=== PATIENT | male | born 1965 | race African-American/Black ===

== ENCOUNTER → 2018-06-24 | Outpatient (CLI) | payer OTHER ==
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
== END ==
LOC: RADXRMAIN 12:31
PROVIDERS: ATTEND Family Medicine
DX: M25.532 Pain in left wrist (principal)

== ENCOUNTER 2018-12-17 20:14 | Emergency (ER) | payer OTHER ==
[2018-12-17 20:26] VITALS: TEMP 99
[2018-12-17] MEDS ORDERED: MORPHINE SULFATE 2 MG/ML SYRINGE IVP STA (20:34)
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
[2018-12-17 22:05] VITALS: BP 125/98; PULSE 81
[2018-12-17 22:06] VITALS: RESP 18
== END 2018-12-17 22:19 | disposition home or self-care (01) ==
LOC: EC 20:14
DX: S16.1XXA Strain of muscle, fascia and tendon at neck level, initial encounter (principal); I25.10 Atherosclerotic heart disease of native coronary artery without angina pectoris; I10 Essential (primary) hypertension; M54.6 Pain in thoracic spine; R68.84 Jaw pain; F17.200 Nicotine dependence, unspecified, uncomplicated; V17.4XXA Pedal cycle driver injured in collision with fixed or stationary object in traffic accident, initial encounter; Y93.89 Activity, other specified; Y92.410 Unspecified street and highway as the place of occurrence of the external cause
CPT/HCPCS: 72072; 71046; 72125; 70486; 70450; 99284; 96374; J2270

== ENCOUNTER 2019-05-13 00:02 | Emergency (ER) | payer OTHER ==
[2019-05-13 00:09] VITALS: BP 112/77; PULSE 91; RESP 18; TEMP 98.1
--- NOTE | 2019-05-13 01:03 | ED ---
ENT HPI - General Chief complaint: ENT Stated complaint: hearing problem Source: patient, family, RN notes reviewed Mode of arrival: ambulatory Limitations: no limitations - History of Present Illness Initial comments: 53-year-old male present emergency Department with chief complaint of radiation. Patient states cannot get up last 3 days. He said physician in the past. No f dolores chills no significant pain denies any nasal congestion cough headache or dizziness. - Related Data Allergies Allergy/AdvReac Type Severity Reaction Status Date / Time No Known Allergies Allergy Verified 02/12/16 22:50 Review of Systems ROS Statement: Those systems with pertinent positive or pertinent negative responses have been documented in the HPI. ROS Other: All systems not noted in ROS Statement are negative. Past Medical History Past Medical History: Hypertension Additional Past Medical History / Comment(s): depression History of Any Multi-Drug Resistant Organisms: None Reported Past Surgical History: Orthopedic Surgery Additional Past Surgical History / Comment(s): hand Past Psychological History: Anxiety, Depression Smoking Status: Current every day smoker Past Alcohol Use History: Rare Past Drug Use History: None Reported General Exam General appearance: alert, in no apparent distress Head exam: Present: atraumatic, normocephalic, normal inspection Eye exam: Present: normal appearance, PERRL, EOMI. Absent: scleral icterus, conjunctival injection, periorbital swelling ENT exam: Present: normal oropharynx, mucous membranes moist, TM's normal bilaterally. Absent: normal exam, normal external ear exam (Cerumen impaction right) Neck exam: Present: normal inspection, full ROM. Absent: tenderness, meningismus, lymphadenopathy Respiratory exam: Present: normal lung sounds bilaterally. Absent: respiratory distress, wheezes, rales, rhonchi, stridor Cardiovascular Exam: Present: regular rate, normal rhythm, normal heart sounds. Absent: systolic murmur, diastolic murmur, rubs, gallop, clicks Course Vital Signs 05/13/19 00:05 Temperature 98.1 F Pulse Rate 91 Respiratory 18 Rate Blood Pressure 112/77 O2 Sat by Pulse 100 Oximetry Procedures - Ear Wax Removal Right Ear Cerumenolytic Used: 5-10% Sodium Bicarb solution Ear Canal Irrigated by: MD MARCK Ear Canal Irrigated With: warm saline using syringe/angiocath Results: Re-examined: some cerumen remains Ear Canal: atraumatic Patient Tolerated Procedure: well, no complications Complications: no problems Disposition Clinical Impression: Impacted cerumen of right ear Disposition: HOME SELF-CARE Condition: Stable Instructions (If sedation given, give patient instructions): Cerumen Impaction (ED) Additional Instructions: Please return to the Emergency Department if symptoms worsen or any other concerns. Is patient prescribed a controlled substance at d/c from ED?: No Referrals: None,Stated [Primary Care Provider] - 1-2 days
== END 2019-05-13 01:23 | disposition home or self-care (01) ==
LOC: EC 00:02
DX: H61.21 Impacted cerumen, right ear (principal); F17.200 Nicotine dependence, unspecified, uncomplicated
CPT/HCPCS: 69209; 99283

== ENCOUNTER → 2019-06-02 | Outpatient (CLI) | payer OTHER ==
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
== END | disposition home or self-care (01) ==
LOC: RADXRMAIN 08:37
PROVIDERS: ATTEND Internal Medicine
DX: M19.032 Primary osteoarthritis, left wrist (principal); M19.031 Primary osteoarthritis, right wrist; M19.042 Primary osteoarthritis, left hand; M19.041 Primary osteoarthritis, right hand

== ENCOUNTER 2019-07-24 22:44 | Emergency (ER) | payer OTHER ==
[2019-07-24 23:11] VITALS: RESP 18
--- NOTE | 2019-07-24 23:36 | XR ---
EXAMINATION TYPE: XR chest 2V DATE OF EXAM: 07/24/2019 COMPARISON: 12/17/2018 HISTORY: Neck pain back pain TECHNIQUE: FINDINGS: Heart and mediastinum are normal. Lungs are clear. Diaphragm is normal. Bony thorax appears normal. IMPRESSION: Normal chest. No change.
[2019-07-24 23:52] VITALS: TEMP 98.8
[2019-07-25] MEDS ORDERED: SODIUM CHLORIDE 0.9% 1,000 ML IV ONE (00:03)
--- NOTE | 2019-07-25 00:25 | ED ---
URI HPI - General Chief Complaint: Upper Respiratory Infection Stated Complaint: SOB, cough Time Seen by Provider: 07/24/19 22:57 Source: patient Mode of arrival: ambulatory Limitations: no limitations - History of Present Illness Initial Comments: Domingo is a 53-year-old male who presents the ER today for evaluation of approximately one week of fever, chills, body aches and nonproductive cough. Patient reports he hasn't been eating or drinking much for the past few days and just today began drinking again. Patient reports this is persistent for the lining decided to come the ER for evaluation. - Related Data Allergies Allergy/AdvReac Type Severity Reaction Status Date / Time No Known Allergies Allergy Verified 07/24/19 22:52 Review of Systems ROS Statement: Those systems with pertinent positive or pertinent negative responses have been documented in the HPI. ROS Other: All systems not noted in ROS Statement are negative. Past Medical History Past Medical History: Hypertension Additional Past Medical History / Comment(s): depression, History of Any Multi-Drug Resistant Organisms: None Reported Past Surgical History: Orthopedic Surgery Additional Past Surgical History / Comment(s): hand, Past Psychological History: Anxiety, Depression Smoking Status: Current every day smoker Past Alcohol Use History: Rare Past Drug Use History: Marijuana General Exam - General Exam Comments Initial Comments: Physical Exam GENERAL: Patient is well-developed and well-nourished. Patient is nontoxic and well-hydrated and is in no distress. HENT: Normocephalic, Atraumatic. EYES: PERRL, EOMI PULMONARY: Unlabored respirations. CARDIOVASCULAR: RRR Tachycardic, regular ABDOMEN: Non-distended SKIN: No rashes or bruising : Deferred NEUROLOGIC: Alert and oriented Normal speech Normal gait MUSCULOSKELETAL: Moving all extremities with no apparent injury PSYCHIATRIC: No SI/HI Limitations: no limitations Course Vital Signs 07/24/19 07/24/19 07/24/19 22:49 23:09 23:50 Temperature 98.6 F 98.8 F Pulse Rate 117 H 99 Respiratory 22 18 18 Rate Blood Pressure 143/99 104/72 O2 Sat by Pulse 98 95 Oximetry Medical Decision Making - Medical Decision Making The patient was seen and evaluated history is obtained from patient history and physical exam are concerning for a flulike illness, patient also appears mildly dehydrated patient was offered flu which was positive for influenza A, IV access was can use given a 1 L fluid bolus. Patient's tachycardia resolved. Patient hemodynamically stable, outside the window for Tamiflu will be discharged home with supportive care. - Lab Data Lab Results 07/24/19 Range/Units 23:05 Influenza Type A RNA Detected H (Not Detectd) Influenza Type B (PCR) Not Detected (Not Detectd) Disposition Clinical Impression: Influenza Disposition: HOME SELF-CARE Condition: Stable Instructions (If sedation given, give patient instructions): Influenza (DC) Is patient prescribed a controlled substance at d/c from ED?: No Referrals: Wally Myers MD [Primary Care Provider] - 1-2 days
[2019-07-25 01:07] VITALS: BP 122/84; PULSE 98
== END 2019-07-25 01:07 | disposition home or self-care (01) ==
LOC: EC 22:44
DX: J11.1 Influenza due to unidentified influenza virus with other respiratory manifestations (principal); R00.0 Tachycardia, unspecified; I10 Essential (primary) hypertension; F17.200 Nicotine dependence, unspecified, uncomplicated
CPT/HCPCS: 71046; 87502; 96360; 99285

== ENCOUNTER 2020-10-13 10:34 | Emergency (ER) | payer OTHER ==
[2020-10-13 11:14] VITALS: RESP 18; TEMP 97.4
[2020-10-13] MEDS ORDERED: NALOXONE 0.4 MG/ML 1 ML VIAL IVP STA (11:51)
[2020-10-13] MEDS ORDERED: KETOROLAC 15 MG/ML 1 ML VIAL IVP STA (11:51)
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
--- NOTE | 2020-10-13 12:46 | XR ---
EXAMINATION TYPE: XR hand complete LT DATE OF EXAM: 10/13/2020 COMPARISON: 06/02/2019 HISTORY: Pain TECHNIQUE: Three views are submitted. FINDINGS: Multiple metallic foreign body seen scattered throughout the soft tissues of the wrist and hand. Post surgical change involving this second digit. Chronic deformity involving the third digit. No acute fr acture or dislocation. IMPRESSION: 1. No acute fracture. See above.
--- NOTE | 2020-10-13 12:48 | XR ---
EXAMINATION TYPE: XR wrist complete LT DATE OF EXAM: 10/13/2020 COMPARISON: 06/02/2019 HISTORY: Pain TECHNIQUE: Four views submitted. FINDINGS: Postsurgical change or congenital deformity of the second digit with chronic deformity of the third d igit. There is extensive soft tissue metallic foreign body noted. No acute osseous abnormality. IMPRESSION: 1. No definite acute fracture or dislocation if symptoms persist, follow-up study in 7 to 10 days wo uld be suggested
[2020-10-13 14:40] VITALS: BP 118/89; PULSE 82
== END 2020-10-13 14:45 | disposition home or self-care (01) ==
LOC: EC 10:34
DX: S60.222A Contusion of left hand, initial encounter (principal); I10 Essential (primary) hypertension; F32.9 Major depressive disorder, single episode, unspecified; F17.200 Nicotine dependence, unspecified, uncomplicated; F12.90 Cannabis use, unspecified, uncomplicated; X50.0XXA Overexertion from strenuous movement or load, initial encounter; Y93.89 Activity, other specified
CPT/HCPCS: 93005; 73110; 73130; 99283; 96374; J1885

== ENCOUNTER 2021-05-16 17:41 | Observation (INO) | payer OTHER ==
[2021-05-16] MEDS ORDERED: SODIUM CHLORIDE 0.9% 1,000 ML IV STA (18:17)
--- NOTE | 2021-05-16 18:19 | ED ---
General Adult HPI - General Chief complaint: Chest Pain Stated complaint: IHS-Dizziness,chest pain Time Seen by Provider: 05/16/21 18:07 Source: patient Mode of arrival: ambulatory Limitations: no limitations - History of Present Illness Initial comments: Dictation was produced using [employer] dictation software. please excuse any grammatical, word or spelling errors. Chief Complaint: 55-year-old male presents with chest pressure and syncopal episode History of Present Illness: 85-year-old male who presents to the emergency department for chest pressure and syncopal episode. This morning patient gave plasma. Patient has been given plasma for several years. He does it on a weekly basis. Patient states he plasma this morning went to work. Patient states he has had issues with headedness after plasma donation on multiple occ asions. Patient states that today he felt lightheaded after giving plasma at work. Patient states he went to put his head down. I'll send he murmurs past and output cannot not know where he is. Patient states he suffered a small cut to his inside lower lip. Patient states he has some mild chest pressure. He states that the pressures to his substernal left anterior chest. States that she feels some pain that feels worse when he tries to take a deep breath. Pain is nonradiating. He states that he feels some fuzziness in his bilateral upper extremities. The ROS documented in this emergency department record has been reviewed and confirmed by me. Those systems with pertinent positive or negative responses have been documented in the HPI. All other systems are other negative and/or noncontributory. PHYSICAL EXAM: General Impression: Alert and oriented x3, not in acute distress HEENT: Normocephalic atraumatic, extra-ocular movements intact, pupils equal and reactive to light bilaterally, mucous membranes moist. Cardiovascular: Heart regular rate and rhythm Chest: Able to complete full sentences, no retractions, no tachypnea Abdomen: abdomen soft, non-tender, non-distended, no organomegaly Musculoskeletal: Pulses present and equal in all extremities, no peripheral edema Motor: no focal deficits noted Neurological: CN II-XII grossly intact, no focal motor or sensory deficits noted Skin: Intact with no visualized rashes Psych: Normal affect and mood ED course: 55-year-old male presents emergency department for chest pain and syncopal episode after plasma donation today vital signs upon arrival shows blood pressure 97/75, rest of vital signs within acceptable limits. EKG interpretation: Ventricular rate 102, sinus tachycardia,. Interval 160, QRS 60, QTc 450. No SC prolongation, no QTC prolongation, no ST or T-wave changes noted. EKG compared to and third, 2020 showing no changes. Overall, this EKG is unremarkable CT angios the chest shows no evidence of pulmonary embolism. No evidence of acute lung disease. Chest x-ray is nonacute as well. Laboratory evaluation shows leukopenia 2.6, microcytic red blood cells. Coag panel is unremarkable. Metabolic panel is normal. Troponin is negative. Repeat vital signs are sustained. Patient reevaluated at the bedside. He has never had a heart attack before. He states that he gets episodes of this chest pressure. Click or presentation concerning for atypical chest pain typical features. Disposition options were discussed. Agreeable for inpatient admission for cardiac monitoring, serial troponin and cardiology consultation. Patient given an aspirin. Reevaluated the bedside at 801 and in stable medical condition. - Related Data Home Medications Medication Instructions Recorded Confirmed HYDROcodone/APAP 5-325MG [[place] 0.5 - 1 tab PO DAILY PRN 10/13/20 10/13/20 5-325] Allergies Allergy/AdvReac Type Severity Reaction Status Date / Time No Known Allergies Allergy Verified 05/16/21 17:52 Review of Systems ROS Statement: Those systems with pertinent positive or pertinent negative responses have been documented in the HPI. ROS Other: All systems not noted in ROS Statement are negative. Past Medical History Past Medical History: Hypertension Additional Past Medical History / Comment(s): depression, History of Any Multi-Drug Resistant Organisms: None Reported Past Surgical History: Orthopedic Surgery Additional Past Surgical History / Comment(s): hand, Past Psychological History: Anxiety, Depression Smoking Status: Current every day smoker Past Alcohol Use History: Rare Past Drug Use History: Marijuana General Exam Limitations: no limitations Course Vital Signs 05/16/21 05/16/21 05/16/21 17:50 18:46 19:43 Temperature 97.5 F L Pulse Rate 98 96 96 Respiratory 18 18 18 Rate Blood Pressure 97/75 97/67 113/81 O2 Sat by Pulse 97 98 97 Oximetry Medical Decision Making - Lab Data Result diagrams: 05/16/21 18:46 05/16/21 18:46 Lab Results 05/16/21 05/16/2105/16/22 Range/Units 18:46 18:46 18:46 WBC 2.6 L (3.8-10.6) k/uL RBC 5.88 (4.30-5.90) m/uL Hgb 13.7 (13.0-17.5) gm/dL Hct 45.2 (39.0-53.0) % MCV 76.8 L (80.0-100.0) fL MCH 23.2 L (25.0-35.0) pg MCHC 30.2 L (31.0-37.0) g/dL RDW 17.9 H (11.5-15.5) % Plt Count 204 (150-450) k/uL MPV 8.5 Hypochromasia Marked Anisocytosis Slight Microcytosis Slight PT 9.7 (9.0-12.0) sec INR 0.9 (<1.2) APTT 23.6 (22.0-30.0) sec Sodium 133 L (137-145) mmol/L Potassium 4.3 (3.5-5.1) mmol/L Chloride 103 (98-107) mmol/L Carbon Dioxide 21 L (22-30) mmol/L Anion Gap 9 mmol/L BUN 11 (9-20) mg/dL Creatinine 0.82 (0.66-1.25) mg/dL Est GFR (CKD-EPI)AfAm >90 (>60 ml/min/1.73 sqM) Est GFR (CKD-EPI)NonAf >90 (>60 ml/min/1.73 sqM) Glucose 91 (74-99) mg/dL Calcium 8.9 (8.4-10.2) mg/dL Magnesium 2.0 (1.6-2.3) mg/dL Total Bilirubin 0.5 (0.2-1.3) mg/dL AST 61 H (17-59) U/L ALT 36 (4-49) U/L Alkaline Phosphatase 60 (38-126) U/L Troponin I (0.000-0.034) ng/mL Total Protein 6.3 (6.3-8.2) g/dL Albumin 3.5 (3.5-5.0) g/dL 05/16/21 Range/Units 18:46 WBC (3.8-10.6) k/uL RBC (4.30-5.90) m/uL Hgb (13.0-17.5) gm/dL Hct (39.0-53.0) % MCV (80.0-100.0) fL MCH (25.0-35.0) pg MCHC (31.0-37.0) g/dL RDW (11.5-15.5) % Plt Count (150-450) k/uL MPV Hypochromasia Anisocytosis Microcytosis PT (9.0-12.0) sec INR (<1.2) APTT (22.0-30.0) sec Sodium (137-145) mmol/L Potassium (3.5-5.1) mmol/L Chloride (98-107) mmol/L Carbon Dioxide (22-30) mmol/L Anion Gap mmol/L BUN (9-20) mg/dL Creatinine (0.66-1.25) mg/dL Est GFR (CKD-EPI)AfAm (>60 ml/min/1.73 sqM) Est GFR (CKD-EPI)NonAf (>60 ml/min/1.73 sqM) Glucose (74-99) mg/dL Calcium (8.4-10.2) mg/dL Magnesium (1.6-2.3) mg/dL Total Bilirubin (0.2-1.3) mg/dL AST (17-59) U/L ALT (4-49) U/L Alkaline Phosphatase (38-126) U/L Troponin I <0.012 (0.000-0.034) ng/mL Total Protein (6.3-8.2) g/dL Albumin (3.5-5.0) g/dL Disposition Clinical Impression: Chest pain Disposition: ADMITTED IP TO THIS HOSP Condition: Fair Referrals: Wally Myers MD [Primary Care Provider] - 1-2 days
[2021-05-16 19:07] LABS: ALT 36 U/L (4-49); AST 61 U/L (17-59); African American GFR (CKD) >90 (>60 ml/min/1.73 sqM); Albumin 3.5 g/dL (3.5-5.0); Alkaline Phosphatase 60 U/L (38-126); Anion Gap 9 mmol/L; Blood Urea Nitrogen 11 mg/dL (9-20); Calcium 8.9 mg/dL (8.4-10.2); Carbon Dioxide 21 mmol/L (22-30); Chloride 103 mmol/L (98-107); Glucose 91 mg/dL (74-99); Non-African American GFR(CKD) >90 (>60 ml/min/1.73 sqM); Sodium 133 mmol/L (137-145); Total Bilirubin 0.5 mg/dL (0.2-1.3); Total Protein 6.3 g/dL (6.3-8.2)
[2021-05-16 19:08] LABS: Potassium 4.3 mmol/L (3.5-5.1)
[2021-05-16 19:09] LABS: Anisocytosis Slight; Basophils % (A) 0 %; Eosinophils % (A) 1 %; HCT 45.2 % (39.0-53.0); HGB 13.7 gm/dL (13.0-17.5); Hypochromasia Marked; Lymphocytes # (A) 0.6 k/uL (1.0-4.8); Lymphocytes % (A) 22 %; MCH 23.2 pg (25.0-35.0); MCHC 30.2 g/dL (31.0-37.0); MCV 76.8 fL (80.0-100.0); Mean Platelet Volume 8.5; Microcytosis Slight; Monocytes # (A) 0.3 k/uL (0-1.0); Monocytes % (A) 11 %; Neutrophils # (A) 1.6 k/uL (1.3-7.7); Neutrophils % (A) 62 %; Platelet Count 204 k/uL (150-450); RBC 5.88 m/uL (4.30-5.90); RDW 17.9 % (11.5-15.5); WBC 2.6 k/uL (3.8-10.6)
[2021-05-16 19:22] LABS: INR 0.9 (<1.2); Partial Thromboplastin Time 23.6 sec (22.0-30.0); Prothrombin Time 9.7 sec (9.0-12.0)
--- NOTE | 2021-05-16 19:37 | CT ---
EXAMINATION TYPE: CT angio chest DATE OF EXAM: 05/16/2021 COMPARISON: None HISTORY: chest pain CT DLP: 288.4 mGycm Automated exposure control for dose reduction was used. CONTRAST: Performed with IV Contrast, patient injected with 40cc mL of Isovue 370. Images obtained from the thoracic inlet through the diaphragm with IV contrast. There are Three-D pos tprocessed images. There is no mediastinal adenopathy. Thoracic aorta is intact. There is no aneurysm or dissection. The re are no hilar masses. The ascending aorta measures 3.5 cm. The lungs are clear of infiltrate. There is no pleural effusion. There are no hilar masses. There is suboptimal contrast density in the pulmonary arteries. There is no filling defect. The thoracic spine is intact. There is no compression fracture. Sternum is intact. IMPRESSION: No evidence of pulmonary embolism. No evidence of acute lung disease.
--- NOTE | 2021-05-16 19:38 | XR ---
EXAMINATION TYPE: XR chest 1V portable DATE OF EXAM: 05/16/2021 COMPARISON: 07/24/2019 HISTORY: Chest pain TECHNIQUE: Single view FINDINGS: Heart is normal. Lungs are clear of infiltrate. There is no heart failure. There are no hil ar masses. IMPRESSION: Normal chest. No change.
[2021-05-16] MEDS ORDERED: ASPIRIN 81 MG PO STA (19:58)
[2021-05-16] MEDS ORDERED: NITROGLYCERIN SL TABS 0.4 MG TAB SUBLINGUAL PRN (19:59)
[2021-05-16] MEDS ORDERED: ONDANSETRON ODT 4 MG TAB PO PRN (22:05)
[2021-05-17 03:43] VITALS: RESP 16
[2021-05-17] MEDS ORDERED: ASPIRIN 81 MG PO SCH (09:00)
[2021-05-17] MEDS ORDERED: PANTOPRAZOLE 40 MG TABLET PO SCH (09:00)
[2021-05-17] MEDS ORDERED: ZINC SULFATE 220 MG CAP PO SCH (09:00)
[2021-05-17] MEDS ORDERED: MULTIVITAMINS, THERA 1 EACH TAB PO SCH (09:00)
[2021-05-17] MEDS ORDERED: ASCORBIC ACID 500 MG TAB PO SCH (09:00)
[2021-05-17] MEDS ORDERED: FERROUS SULFATE 325 MG TAB PO SCH (09:00)
[2021-05-17] MEDS ORDERED: ASPIRIN 325 MG TAB PO SCH (09:00)
[2021-05-17] MEDS ORDERED: CHOLECALCIFEROL 25 MCG (1000 IU) TABLET PO SCH (09:00)
[2021-05-17 09:17] LABS: African American GFR (CKD) 112.6 (60.0-200.0); BUN/Creat Ratio 9.89 Ratio (12.00-20.00); Blood Urea Nitrogen 8.9 mg/dL (9.0-27.0); Calcium 8.5 mg/dL (8.7-10.3); Carbon Dioxide 24.8 mmol/L (20.0-27.5); Chloride 104 mmol/L (96-109); Chol/HDL Ratio 2.56 Ratio; Glucose 93 mg/dL (70-110); LDL Cholesterol,Calculated 53.7 mg/dL (0.0-131.0); Non-African American GFR(CKD) 97.2 (60.0-200.0); Potassium 3.9 mmol/L (3.5-5.5); Sodium 137 mmol/L (135-145)
[2021-05-17 09:26] VITALS: BP 114/77; PULSE 82; TEMP 96.1
--- NOTE | 2021-05-17 09:32 | P.CRDCN ---
History of Present Illness History of present illness: HISTORY OF PRESENTING ILLNESS This is a pleasant 55-year-old with history of tobacco use and GERD. 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 We have been asked to see in consultation for chest pain. Patient presents to the emergency department after a syncopal episode at work. 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 He states yesterday around 2pm he donated plasma, he went to work afterwards. In 1-2 hours he started to feel lightheaded, dizzy and felt he had to sit down. He states this happened 3 times. He sat down in the break room, put his head down and apparently passed out. He states he did fall to the ground, this woke up him. His girlfriend brought him to the ER for evaluation. He states he did not eat after his plasma donation and he does feel lightheaded sometimes after the donations but has not passed out before. He also has been having symptoms of night sweats, decreased appetite, feeling "run down", endorses chills. Denies fever, palpitations, or shortness of breath. He was found to be covid-19 positive. In terms of his chest pain he has been having left sided chest pain on and off for 1 year. Non-exertional, non-radiating. Denies any associated shortness of b reath, diaphoresis, or nausea or vomiting. It is reproducible, worse with palpation to his left side of his chest. He also has some left sided back pain when moving his left arm. 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 DIAGNOSTICS EKG reveals sinus tachycardia, heart rate 102, T wave inversion in lead III, no significant ST-T wave abnormalities to suggest ischemia Telemetry tracings this morning revealed sinus mechanism HR 90s Chest xray no acute cardiopulmonary process. Laboratory reviewed, Covid-19 Positive ,WBC 2.6, hemoglobin 13.7, platelets 204, troponin negative 3, sodium 133, potassium 4.3, BUN 11, serum creatinine 0.8, magnesium 2.0, triglycerides 1:15, cholesterol 126, LDL 53, HDL 49, Current home medications include PRN zofran, omeprazole, multivitamin and ferrous sulfate REVIEW OF SYSTEMS At the time of my exam: CONSTITUTIONAL: Denies fever or chills. CARDIOVASCULAR: Denies chest pain, shortness of breath, orthopnea, PND or palpitations. RESPIRATORY: Denies cough. GASTROINTESTINAL: Denies abdominal pain, diarrhea, constipation, nausea or vomiting. MUSCULOSKELETAL: Denies myalgias. NEUROLOGIC: Denies numbness, tingling, headache or weakness. ENDOCRINE: Denies fatigue, weight change, polydipsia or polyurina. GENITOURINARY: Denies burning, hematuria or urgency with micturation. HEMATOLOGIC: Denies history of anemia or bleeding. PHYSICAL EXAMINATION Vitals reviewed CONSTITUTIONAL: No apparent distress. HEENT: Head is normocephalic. No JVD. CHEST EXAMINATION: Lungs are clear to auscultation. There is chest wall tenderness is noted on palpation HEART EXAMINATION: Regular rate and rhythm. S1, S2 heard. No murmurs, gallops or rub. ABDOMEN: Soft, nontender. Positive bowel sounds. EXTREMITIES:no lower extremity edema SKIN: Aake, alert and oriented x3. ASSESSMENT Syncope, likely related to plasma donation, possible dehydration and covid-19 infection Chest pain, appears non-cardiac in nature, appears musculoskeletal etiology, rep roducible on exam Covid-19 infection Symptoms of night sweats, chills, decreased appetite and generalized fatigue PLAN An acute coronary event has been ruled out with no EKG evidence of ischemia and negative cardiac enzymes. Obtain 2D echocardiogram and doppler study to assess cardiac structure and function. From a cardiology perspective, if echocardiogram with no acute findings, ok to discharge patient and follow up in the office for further workup and evaluation. Thank you kindly for this consultation. Nurse Practitioner note has been reviewed, I agree with a documented findings and plan of care. Patient was seen and examined. Past Medical History Past Medical History: Hypertension Additional Past Medical History / Comment(s): depression, History of Any Multi-Drug Resistant Organisms: None Reported Past Surgical History: Orthopedic Surgery Additional Past Surgical History / Comment(s): hand, Past Psychological History: Anxiety, Depression Smoking Status: Current every day smoker Past Alcohol Use History: Rare Past Drug Use History: Marijuana Medications and Allergies Home Medications Medication Instructions Recorded Confirmed Type Ferrous Sulfate [Feosol] 325 mg PO DAILY 05/16/21 05/16/21 History Multivitamins, Thera [Multivitamin 1 tab PO DAILY 05/16/21 05/16/21 History (formulary)] Omeprazole 40 mg PO DAILY 05/16/21 05/16/21 History Ondansetron Odt [Zofran Odt] 4 mg PO Q12HR PRN 05/16/21 05/16/21 History Allergies Allergy/AdvReac Type Severity Reaction Status Date / Time No Known Allergies Allergy Verified 05/16/21 20:22 Physical Exam Vitals: Vital Signs Temp Pulse Resp BP Pulse Ox 05/17/21 07:06 98.5 F 91 16 110/72 98 05/17/21 03:42 93 16 118/86 94 L 05/17/21 00:09 91 18 110/72 97 05/16/21 19:43 96 18 113/81 97 05/16/21 18:46 96 18 97/67 98 05/16/21 17:50 97.5 F L 98 18 97/75 97 Intake and Output 05/16/21 05/17/21 05/17/21 22:59 06:59 14:59 Other: Weight 78.925 kg Results 05/16/21 18:46 05/17/21 05:18 Cardiac Enzymes 05/16/21 05/16/21 05/16/21 Range/Units 18:46 18:46 21:49 AST 61 H (17-59) U/L Troponin I <0.012 <0.012 (0.000-0.034) ng/mL 05/17/21 Range/Units 00:07 AST (17-59) U/L Troponin I <0.012 (0.000-0.034) ng/mL Coagulation 05/16/21 Range/Units 18:46 PT 9.7 (9.0-12.0) sec APTT 23.6 (22.0-30.0) sec CBC 05/16/21 Range/Units 18:46 WBC 2.6 L (3.8-10.6) k/uL RBC 5.88 (4.30-5.90) m/uL Hgb 13.7 (13.0-17.5) gm/dL Hct 45.2 (39.0-53.0) % Plt Count 204 (150-450) k/uL Comprehensive Metabolic Panel 05/16/21 Range/Units 18:46 Sodium 133 L (137-145) mmol/L Potassium 4.3 (3.5-5.1) mmol/L Chloride 103 (98-107) mmol/L Carbon Dioxide 21 L (22-30) mmol/L BUN 11 (9-20) mg/dL Creatinine 0.82 (0.66-1.25) mg/dL Glucose 91 (74-99) mg/dL Calcium 8.9 (8.4-10.2) mg/dL AST 61 H (17-59) U/L ALT 36 (4-49) U/L Alkaline Phosphatase 60 (38-126) U/L Total Protein 6.3 (6.3-8.2) g/dL Albumin 3.5 (3.5-5.0) g/dL Current Medications Generic Name Dose Route Start Last Admin Trade Name Freq PRN Reason Stop Dose Admin Ascorbic Acid 500 mg 05/17/21 09:00 Ascorbic Acid 500 Mg Tab PO DAILY [facility] Aspirin 325 mg 05/17/21 09:00 Aspirin 325 Mg Tab PO DAILY [facility] Cholecalciferol 50 mcg 05/17/21 09:00 Cholecalciferol 25 Mcg (1000 Iu) Tablet PO DAILY [facility] Ferrous Sulfate 325 mg 05/17/21 09:00 Ferrous Sulfate 325 Mg Tab PO DAILY [facility] Multivitamins 1 each 05/17/21 09:00 Multivitamins, Thera 1 Each Tab PO DAILY [facility] Nitroglycerin 0.4 mg 05/16/21 19:59 Nitroglycerin Sl Tabs 0.4 Mg Tab SUBLINGUAL Q5M PRN Chest Pain Ondansetron HCl 4 mg 05/16/21 22:05 Ondansetron Odt 4 Mg Tab PO Q12HR PRN Nausea Pantoprazole Sodium 40 mg 05/17/21 09:00 Pantoprazole 40 Mg Tablet PO DAILY [facility] Zinc Sulfate 220 mg 05/17/21 09:00 Zinc Sulfate 220 Mg Cap PO DAILY [facility] Intake and Output 05/16/21 05/17/21 05/17/21 22:59 06:59 14:59 Other: Weight 78.925 kg 05/16/21 18:46 05/16/21 18:46
[2021-05-17 10:03] LABS: Basophils # (A) 0.01 X 10*3/uL (0.00-0.10); Basophils % (A) 0.4 %; Eosinophils # (A) 0.02 X 10*3/uL (0.04-0.35); Eosinophils % (A) 0.9 %; HCT 37.5 % (39.6-50.0); HGB 11.4 g/dL (13.0-17.0); Lymphocytes # (A) 1.19 X 10*3/uL (0.90-5.00); Lymphocytes % (A) 52.4 %; MCH 21.8 pg (27.0-32.0); MCHC 30.4 g/dL (32.0-37.0); MCV 71.6 fL (80.0-97.0); Mean Platelet Volume 10.4 fL (9.5-12.2); Monocytes # (A) 0.38 X 10*3/uL (0.20-1.00); Monocytes % (A) 16.7 %; Neutrophils # (A) 0.66 X 10*3/uL (1.80-7.70); Neutrophils % (A) 29.2 %; Platelet Count 194 X 10*3/uL (140-440); RBC 5.24 X 10*6/uL (4.40-5.60); RDW 18.5 % (11.5-14.5); WBC 2.27 X 10*3/uL (4.50-10.00)
--- NOTE | 2021-05-17 11:56 | ECHOF ---
Referral Reason:syncope MEASUREMENTS -------- HEIGHT: 167.6 cm WEIGHT: 78.9 kg BP: 110/72 RVIDd: 2.9 cm (< 3.3) IVSd: 0.9 cm (0.6 - 1.1) LVIDd: 4.3 cm (3.9 - 5.3) LVPWd: 1.1 cm (0.6 - 1.1) IVSs: 1.5 cm LVIDs: 2.7 cm LVPWs: 1.5 cm LA Diam: 3.0 cm (2.7 - 3.8) LAESV Index (A-L): 20.86 ml/m Ao Diam: 3.6 cm (2.0 - 3.7) AV Cusp: 2.0 cm (1.5 - 2.6) MV EXCURSION: 19.783 mm (> 18.000) MV EF SLOPE: 61 mm/s (70 - 150) EPSS: 1.1 cm MV E Dave: 0.73 m/s MV DecT: 259 ms MV A Dave: 0.84 m/s MV E/A Ratio: 0.87 RAP: 5.00 mmHg RVSP: 25.88 mmHg FINDINGS -------- Sinus rhythm. This was a technically good study. The left ventricular size is normal. Left ventricular wall thickness is normal. Overall left vent ricular systolic function is normal with, an EF between 60 - 65 %. The right ventricle is normal in size. Normal LA size by volume 22+/-6 ml/m2. The right atrium is normal in size. Interatrial and interventricular septum intact. The aortic valve is trileaflet, and appears structurally normal. No aortic stenosis or regurgitation. The mitral valve is normal. Mild tricuspid regurgitation present. Right ventricular systolic pressure is normal at < 35 mmHg. There is no pulmonic regurgitation present. The aortic root size is normal. Normal inferior vena cava with normal inspiratory collapse consistent with estimated right atrial pre ssure of 5 mmHg. There is no pericardial effusion. CONCLUSIONS -------- 1. The left ventricular size is normal. 2. Left ventricular wall thickness is normal. 3. Overall left ventricular systolic function is normal with, an EF between 60 - 65 %. 4. The aortic valve is trileaflet, and appears structurally normal. No aortic stenosis or regurgitati on. 5. Mild tricuspid regurgitation present. 6. The aortic root size is normal. 7. There is no pericardial effusion. GREASE MAN: Debora Rizo RDCS
--- NOTE | 2021-05-17 13:29 | HP ---
HISTORY AND PHYSICAL HISTORY AND PHYSICAL/ DISCHARGE SUMMARY: DATE OF SERVICE: 05/17/2021. CHIEF COMPLAINTS: Dizziness, weakness, chest pain and Covid 19. HISTORY OF PRESENT ILLNESS: This 55-year-old gentleman with a past medical history of multiple medical problems including hypertension, depression, being followed Dr. Myers in the outpatient setting, complaining of weakness, dizziness, and patient also has cough and congestion. Patient diagnosed with Covid 19 pneumonia. Cardiology saw the patient. The patient also had chest pain. Cardiology cleared the patient for discharge. The troponins are negative. Otherwise, the pulse ox was 98% on room air. The patient also had a chest CTA which I reviewed personally which showed no evidence of any pulmonary embolism and no evidence of any acute lung disease also. A 2D echocardiogram was also done by Cardiology. The cardiology cleared the patient for discharge and recommended outpatient followup. The patient will be discharged in stable condition with guarded prognosis. Ejection fraction found to be 60 to 65%. There is no history of fever, rigors, chills. PAST MEDICAL HISTORY: History of hypertension, depression. MEDICATIONS: Medications prior to admission include home medications: Zofran, omeprazole, iron sulfate, cholecalciferol. Doses reviewed. ALLERGIES: None. FAMILY HISTORY: No history of heart disease or strokes in the family. SOCIAL HISTORY: History of smoking, history of THC. REVIEW OF SYSTEMS: ENT: No diminished vision. No diminished hearing. CARDIOVASCULAR: As mentioned earlier. RESPIRATORY: As mentioned earlier. GI no nausea or vomiting. no dysuria. NERVOUS SYSTEM: As mentioned earlier. ALLERGY/IMMUNOLOGY: No asthma or hay fever. MUSCULOSKELETAL: As mentioned earlier. HEMATOLOGY/ONCOLOGY: No history of anemia. ENDOCRINE: No history of diabetes, or hypothyroidism. CONSTITUTIONAL: As mentioned earlier. DERMATOLOGY: Negative. RHEUMATOLOGY: Negative. PSYCHIATRY as mentioned earlier. PHYSICAL EXAMINATION: The patient is alert and oriented times three. Pulse 82, blood pressure 114/77, respiration 16, temperature 96.1, pulse ox 98% on room air. HEENT is conjunctivae normal. NECK: No JVD. CARDIOVASCULAR: S1, S2 muffled. RESPIRATION: Breath sounds diminished in the bases. A few scattered rhonchi. ABDOMEN: Soft, nontender. LEGS are no edema. No swelling. LABS: WBC 2.27, hemoglobin 11.4, sodium 137, potassium 3.9. ASSESSMENT: 1. Acute COVID-19 infection. 2. Possible syncope secondary to dehydration. 3. Myocardial infarction ruled out. 4. Hyponatremia, improved. 5. Leukopenia. 6. Anemia. 7. Hypertension. 8. Depression. 9. History of nicotine dependence. 10.History of anxiety, depression. 11.History of THC. RECOMMENDATIONS AND DISCUSSION: In this 55-year-old gentleman who presented with multiple complex medical issues, we will monitor the patient closely. Continue current medications, management and symptomatic treatment. Cardiology has seen the patient and recommended outpatient followup. The patient is not hypoxic and chest x-ray is free of any infiltrates. I recommend adequate hydration and closely follow with Dr. Myers and Cardiology in the outpatient setting. Please refer to the discharge reconciliation sheet for list of medications and they are as follows: 1. Diet is cardiac diet. 2. Activity limited until followup. 3. Follow up with Dr. Myers in 2-3 days. 4. Follow up with Cardiology as recommended. 6. Multivitamin 1 p.o. daily. 7. Omeprazole 40 mg daily. 8. Zofran p.r.n. 9. Aspirin 81 mg daily. 10.Dexamethasone 6 mg p.o. daily for 6 days. 11.CBC, BMP in the outpatient setting. 12.Oral zinc 220 mg p.o. daily. 13.Vitamin C 500 mg. 14.Vitamin D3 50 mg p.o. daily. Once again the patient is being discharged in stable condition with guarded prognosis. MMODL / IJN: [id number] / MTDD
== END 2021-05-17 13:55 | disposition home or self-care (01) ==
LOC: EC 17:41 → 6NMEDSUR 19:59
PROVIDERS: ADMIT Hospitalist; ATTEND Hospitalist
DX: U07.1 COVID-19 (principal); J12.82 Pneumonia due to coronavirus disease 2019; E87.1 Hypo-osmolality and hyponatremia; D72.819 Decreased white blood cell count, unspecified; D64.9 Anemia, unspecified; I10 Essential (primary) hypertension; F32.A Depression, unspecified; F41.9 Anxiety disorder, unspecified; K21.9 Gastro-esophageal reflux disease without esophagitis; F17.200 Nicotine dependence, unspecified, uncomplicated; R00.0 Tachycardia, unspecified; M54.9 Dorsalgia, unspecified; Z79.899 Other long term (current) drug therapy
CPT/HCPCS: 96360; 96361; 99285; 36415; 93005; 93306; 80061; 80053; 80048; 83735; 84484 ×2; 85025 ×2; 85610; 85730; 87635; 71045; 71275; G0378 ×2; Q9967

== ENCOUNTER 2021-08-30 20:21 | Observation (INO) | payer OTHER ==
[2021-08-30 20:32] VITALS: RESP 18
[2021-08-30 20:54] LABS: Anisocytosis Slight; Basophils % (A) 1 %; Eosinophils # (A) 0.1 k/uL (0-0.7); Eosinophils % (A) 3 %; HCT 35.1 % (39.0-53.0); HGB 10.4 gm/dL (13.0-17.5); Hypochromasia Marked; Lymphocytes # (A) 0.9 k/uL (1.0-4.8); Lymphocytes % (A) 21 %; MCH 20.9 pg (25.0-35.0); MCHC 29.7 g/dL (31.0-37.0); MCV 70.4 fL (80.0-100.0); Mean Platelet Volume 6.9; Microcytosis Marked; Monocytes # (A) 0.2 k/uL (0-1.0); Monocytes % (A) 5 %; Neutrophils # (A) 2.8 k/uL (1.3-7.7); Neutrophils % (A) 68 %; Platelet Count 295 k/uL (150-450); Poikilocytosis Slight; RBC 4.98 m/uL (4.30-5.90); RDW 18.6 % (11.5-15.5); WBC 4.1 k/uL (3.8-10.6)
[2021-08-30 21:08] LABS: ALT 11 U/L (4-49); AST 29 U/L (17-59); African American GFR (CKD) >90 (>60 ml/min/1.73 sqM); Albumin 3.9 g/dL (3.5-5.0); Alkaline Phosphatase 60 U/L (38-126); Anion Gap 4 mmol/L; Blood Urea Nitrogen 11 mg/dL (9-20); Calcium 9.5 mg/dL (8.4-10.2); Carbon Dioxide 28 mmol/L (22-30); Chloride 109 mmol/L (98-107); Glucose 108 mg/dL (74-99); INR 0.9 (<1.2); Non-African American GFR(CKD) >90 (>60 ml/min/1.73 sqM); Partial Thromboplastin Time 21.3 sec (22.0-30.0); Potassium 4.7 mmol/L (3.5-5.1); Sodium 141 mmol/L (137-145); Total Bilirubin 0.4 mg/dL (0.2-1.3); Total Protein 6.9 g/dL (6.3-8.2)
--- NOTE | 2021-08-30 21:22 | XR ---
EXAMINATION TYPE: XR chest 2V DATE OF EXAM: 08/30/2021 COMPARISON: 05/16/2021 HISTORY: Chest pain TECHNIQUE: Frontal and lateral views of the chest are obtained. FINDINGS: There is no focal air space opacity, pleural effusion, or pneumothorax seen. The cardiome diastinal silhouette is within normal limits. No acute osseous abnormality. IMPRESSION: No acute cardiopulmonary process.
[2021-08-30] MEDS ORDERED: SODIUM CHLORIDE 0.9% 500 ML 500 ML IV STA (23:17)
[2021-08-30] MEDS ORDERED: DIPH,PERTUS(ACELL)TETVAC-LF 0.5 ML VIAL IM ONE (23:30)
--- NOTE | 2021-08-30 23:30 | ED ---
Dizziness HPI - General Chief Complaint: Syncope Stated Complaint: Chest Pain, Neck and Jaw Pain Time Seen by Provider: 08/30/21 23:16 Source: patient, RN notes reviewed Mode of arrival: wheelchair - History of Present Illness Initial Comments: This is a pleasant 55-year-old male who presents arise prior to having a syncopal episode. Patient states he had just finished eating, was sitting in a car. Patient states he stood up and got lightheaded. Patient had to sit back down. Patient then stood up again and felt lightheaded. Patient ended up passing out. Unknown how long he was out. However he did hit the back of his head. Patient complaining of a headache and neck pain. Additionally, after the event he developed left shoulder and chest pain. Patient believes he got anxious and developed chest pain. Patient had a similar episode in May and in fact, had a stress test last week which did not show any abnormality. Patient had an echocardiogram in May as well. Has not had a stress test. no fever or chills, no changes in vision or hearing, no sore throat or difficulty with speech, no neck pain, no shortness of breath, no abdominal pain, no nausea or vomiting, no changes in urination or bowel movements, no numbness or tingling, no extremity pain, no skin rashes or lesions. Positive cigarette smoker. History of COPD Marijuana smoker. Denies alcohol or drug abuse. MD Complaint: dizziness, lightheadedness - Related Data Home Medications Medication Instructions Recorded Confirmed Ferrous Sulfate [Iron (65 MG 325 mg PO DAILY 05/16/21 05/16/21 Elemental)] Multivitamins, Thera [Multivitamin 1 tab PO DAILY 05/16/21 05/16/21 (formulary)] Omeprazole 40 mg PO DAILY 05/16/21 05/16/21 Ondansetron Odt [Zofran ODT] 4 mg PO Q12HR PRN 05/16/21 05/16/21 Previous Rx's Medication Instructions Recorded Ascorbic Acid [Vitamin C] 500 mg PO DAILY 30 Days #30 tab 05/17/21 Aspirin 81 mg PO DAILY 30 Days #30 tab 05/17/21 Cholecalciferol [Vitamin D3 (25 50 mcg PO DAILY #60 tablet 05/17/21 Mcg = 1000 Iu)] Dexamethasone 6 mg PO DAILY 10 Days #10 tablet 05/17/21 Zinc Sulfate [Orazinc] 220 mg PO DAILY 14 Days #14 cap 05/17/21 Allergies Allergy/AdvReac Type Severity Reaction Status Date / Time No Known Allergies Allergy Verified 08/30/21 20:32 Review of Systems ROS Statement: Those systems with pertinent positive or pertinent negative responses have been documented in the HPI. ROS Other: All systems not noted in ROS Statement are negative. Past Medical History Past Medical History: Hypertension Additional Past Medical History / Comment(s): depression, History of Any Multi-Drug Resistant Organisms: None Reported Past Surgical History: Orthopedic Surgery Additional Past Surgical History / Comment(s): hand, Past Anesthesia/Blood Transfusion Reactions: No Reported Reaction Past Psychological History: Anxiety, Depression Smoking Status: Current every day smoker Past Alcohol Use History: Rare Past Drug Use History: Marijuana General Exam - General Exam Comments Initial Comments: Patient in minimal distress, cranial nerves II through XII grossly intact. Alert and oriented 4. General appearance: alert, in no apparent distress Head exam: Present: normal inspection, other (Abrasion noted to the occipital region of the scalp. No crepitus. No step-off. Tenderness. Head is normocephalic/atraumatic otherwise.) Eye exam: Present: normal appearance, PERRL, EOMI. Absent: scleral icterus, conjunctival injection, periorbital swelling Pupils: Present: normal accommodation ENT exam: Present: normal exam, normal oropharynx, mucous membranes moist, TM's normal bilaterally, normal external ear exam Neck exam: Present: normal inspection, tenderness (Bilateral cervical paraspinal tenderness. No definitive midline tenderness.), full ROM. Absent: meningismus, lymphadenopathy Respiratory exam: Present: normal lung sounds bilaterally. Absent: respiratory distress, wheezes, rales, rhonchi, stridor, chest wall tenderness Cardiovascular Exam: Present: normal rhythm, tachycardia, normal heart sounds. Absent: systolic murmur, diastolic murmur, rubs, gallop, clicks GI/Abdominal exam: Present: soft, normal bowel sounds. Absent: distended, tenderness, guarding, rebound, rigid Extremities exam: Present: normal inspection, full ROM, normal capillary refill. Absent: tenderness, pedal edema, joint swelling, calf tenderness Back exam: Present: normal inspection Neurological exam: Present: alert, oriented X3, CN II-XII intact Psychiatric exam: Present: normal affect, normal mood Skin exam: Present: warm, dry, intact, normal color. Absent: rash Course Vital Signs 08/30/21 08/30/21 08/31/21 20:28 23:00 00:00 Temperature 97.1 F L 98.4 F Pulse Rate 101 H 80 Pulse Rate [ 81 Right Supine Pulse Oximetery ] Respiratory 18 18 18 Rate Blood Pressure 138/95 144/107 Blood Pressure 133/102 [Right Arm Sitting] Blood Pressure 135/98 [Right Arm Standing] Blood Pressure 133/101 [Right Arm Supine] O2 Sat by Pulse 99 100 98 Oximetry - Reevaluation(s) Reevaluation #1: 08/31/21 00:12 Medical record is reviewed Symptoms are improved here in the emergency department Patient is informed of results and questions answered Patient in no distress Reevaluation #2: 08/31/21 01:23 Medical record is reviewed Symptoms are improved here in the emergency department Patient is informed of results and questions answered Patient in no distress EKG Findings - EKG Comments: EKG Findings:: EKG done at 2034 and read by the ED attending physician reveals sinus rhythm with sinus arrhythmia, rate of 81, normal intervals, normal axis, no acute ST or T-wave changes. When compared to the previous study from 05/17/2021 patient does have increase amplitude of the ST section in V2 and V3. Upright T-wave in lead 3 comparatively speaking. T wave amplitude is higher in multiple leads. No other significant changes. Medical Decision Making - Medical Decision Making Patient's tetanus was updated. Computed tomography scan showed no acute findings. We'll admit the patient for recurrent syncope. Case was discussed with the hospitalist physician from [facility]. Consultation for cardiology and neurology made. Patient was given aspirin here in the ER. D-dimer was negative . Awaiting orthostatics. After quite some time in the emergency department despite being admitted to the hospital patient decided he was going to leave AGAINST MEDICAL ADVICE. AMA Documentation: I, personally, had a discussion with the patient concerning their presumed zain gnoses and my recommendations regarding available options for treatment. The patient understand the risks and benefits of the treatment options presented and also understands the risks of not following these recommendations and leaving the hospital against medical advice. The patient clearly has capacity to make an informed decision regarding further treatment at this time and is electing to sign out against my medical advice. Follow up arrangements were discussed with the patient and the patient was advised to consider returning to the emergency department or seeking further care should they have a worsening of their medical condition, if they should develop new or concerning symptoms, or if they should change their mind about receiving further medical care. - Lab Data Result diagrams: 08/30/21 20:45 08/30/21 20:45 Lab Results 08/30/21 08/30/21 08/30/21 Range/Units 20:45 20:45 20:45 WBC 4.1 (3.8-10.6) k/uL RBC 4.98 (4.30-5.90) m/uL Hgb 10.4 L (13.0-17.5) gm/dL Hct 35.1 L (39.0-53.0) % MCV 70.4 L (80.0-100.0) fL MCH 20.9 L (25.0-35.0) pg MCHC 29.7 L (31.0-37.0) g/dL RDW 18.6 H (11.5-15.5) % Plt Count 295 (150-450) k/uL MPV 6.9 Neutrophils % 68 % Lymphocytes % 21 % Monocytes % 5 % Eosinophils % 3 % Basophils % 1 % Neutrophils # 2.8 (1.3-7.7) k/uL Lymphocytes # 0.9 L (1.0-4.8) k/uL Monocytes # 0.2 (0-1.0) k/uL Eosinophils # 0.1 (0-0.7) k/uL Basophils # 0.0 (0-0.2) k/uL Hypochromasia Marked Poikilocytosis Slight Anisocytosis Slight Microcytosis Marked PT 10.0 (9.0-12.0) sec INR 0.9 (<1.2) APTT 21.3 L (22.0-30.0) sec D-Dimer (<0.60) mg/L FEU Sodium 141 (137-145) mmol/L Potassium 4.7 (3.5-5.1) mmol/L Chloride 109 H (98-107) mmol/L Carbon Dioxide 28 (22-30) mmol/L Anion Gap 4 mmol/L BUN 11 (9-20) mg/dL Creatinine 0.83 (0.66-1.25) mg/dL Est GFR (CKD-EPI)AfAm >90 (>60 ml/min/1.73 sqM) Est GFR (CKD-EPI)NonAf >90 (>60 ml/min/1.73 sqM) Glucose 108 H (74-99) mg/dL Calcium 9.5 (8.4-10.2) mg/dL Magnesium 2.1 (1.6-2.3) mg/dL Total Bilirubin 0.4 (0.2-1.3) mg/dL AST 29 (17-59) U/L ALT 11 (4-49) U/L Alkaline Phosphatase 60 (38-126) U/L Troponin I (0.000-0.034) ng/mL NT-Pro-B Natriuret Pep pg/mL Total Protein 6.9 (6.3-8.2) g/dL Albumin 3.9 (3.5-5.0) g/dL 08/30/21 08/30/21 08/31/21 Range/Units 20:45 20:45 00:10 WBC (3.8-10.6) k/uL RBC (4.30-5.90) m/uL Hgb (13.0-17.5) gm/dL Hct (39.0-53.0) % MCV (80.0-100.0) fL MCH (25.0-35.0) pg MCHC (31.0-37.0) g/dL RDW (11.5-15.5) % Plt Count (150-450) k/uL MPV Neutrophils % % Lymphocytes % % Monocytes % % Eosinophils % % Basophils % % Neutrophils # (1.3-7.7) k/uL Lymphocytes # (1.0-4.8) k/uL Monocytes # (0-1.0) k/uL Eosinophils # (0-0.7) k/uL Basophils # (0-0.2) k/uL Hypochromasia Poikilocytosis Anisocytosis Microcytosis PT (9.0-12.0) sec INR (<1.2) APTT (22.0-30.0) sec D-Dimer 0.22 (<0.60) mg/L FEU Sodium (137-145) mmol/L Potassium (3.5-5.1) mmol/L Chloride (98-107) mmol/L Carbon Dioxide (22-30) mmol/L Anion Gap mmol/L BUN (9-20) mg/dL Creatinine (0.66-1.25) mg/dL Est GFR (CKD-EPI)AfAm (>60 ml/min/1.73 sqM) Est GFR (CKD-EPI)NonAf (>60 ml/min/1.73 sqM) Glucose (74-99) mg/dL Calcium (8.4-10.2) mg/dL Magnesium (1.6-2.3) mg/dL Total Bilirubin (0.2-1.3) mg/dL AST (17-59) U/L ALT (4-49) U/L Alkaline Phosphatase (38-126) U/L Troponin I <0.012 (0.000-0.034) ng/mL NT-Pro-B Natriuret Pep 36 pg/mL Total Protein (6.3-8.2) g/dL Albumin (3.5-5.0) g/dL Disposition Clinical Impression: Syncope, Chest pain, Closed head injury, Scalp abrasion, Left against medical advice Disposition: Left Against Medical Advice Condition: Stable Is patient prescribed a controlled substance at d/c from ED?: No Time of Disposition: 01:24
--- NOTE | 2021-08-30 23:54 | CT ---
EXAMINATION TYPE: CT brain premine wo con DATE OF EXAM: 08/30/2021 COMPARISON: 12/17/2018 HISTORY: Headache, neck pain, status post trauma CT DLP: 1505.8 mGycm Automated exposure control for dose reduction was used. Images of the brain and cervical spine without contrast. Ventricles have normal size. There is no mass effect or midline shift. There is no sign of intracrani al hemorrhage. Calvarium is intact. Skull base is intact. There is normal aeration of the mastoid sin uses. There is mucosal thickening in the maxillary sinuses. There is mild ethmoid and sphenoid sinus mucosal thickening. The cervical vertebra show mild straightening. There is degenerative disc space narrowing and spur fo rmation from C4 to C7. Facet joints are intact. There is no compression fracture. 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 No fracture. No change compared to old exam. Negative CT scan of the brain. Sinusitis. No change compared to old exam.
[2021-08-31] MEDS ORDERED: ASPIRIN 81 MG PO STA (00:12)
[2021-08-31 00:43] VITALS: BP 133/101; PULSE 81; TEMP 98.4
[2021-08-31 00:58] LABS: Magnesium 2.1 mg/dL (1.6-2.3)
[2021-08-31] MEDS ORDERED: ONDANSETRON 4 MG/2 ML VIAL IVP PRN (01:19)
[2021-08-31] MEDS ORDERED: ACETAMINOPHEN TAB 325 MG TAB PO PRN (01:19)
[2021-08-31] MEDS ORDERED: MORPHINE SULFATE 4 MG/ML SYRINGE IV PRN (01:19)
[2021-08-31] MEDS ORDERED: NALOXONE 0.4 MG/ML 1 ML VIAL IV PRN (01:19)
[2021-08-31] MEDS ORDERED: SODIUM CHLORIDE 0.9% 1,000 ML IV SCH (01:30)
--- NOTE | 2021-08-31 06:52 | P.HPIM ---
History of Present Illness Please consider this note as combined H&P and discharge summary (patient was not discharged but left AMA) This is a pleasant 55 years old male with past medical history of Hypertension, depression,,Current every day smoker Presents because of syncopal episode, with fall from standing, pt states that he hit the back of his head, pt c/o left shoulder pain that radiates down into his chest Patient left the hospital from the emergency room shortly after he was admitted, patient left AMA before I or our medical team have the chance to see the patient and talk to him. Vitals are stable, orthostatic were checked and were negative CBC is unremarkable except for mild anemia with hemoglobin 10.4, 3 months ago her hemoglobin was 11.4. INR 0.9, d-dimer -0.2. BMP and liver enzymes were unremarkable. Troponin is negative. ProBNP is negative at 36. CT of the head and neck: No acute intracranial process, negative CT of the neck with no fracture Chest x-ray: No acute cardiopulmonary process In the emergency room patient received normal saline and aspirin 1 time dose 324 mg Assessment syncope chest pain with negative d-dimer microcystic hypochromic anemia Noncompliance, patient left AMA Hypertension Nicotine dependence History of depression Plan This is a pleasant 55 years old male presents because of syncope Orthostatic vitals negative. D-dimer negative. Follow-up with cardiology and nephrology service Continue with anemia workup Labs and medication were reviewed.. Continue same treatment. Continue with symptomatic treatment. Resume home medication. Monitor lytes and vitals. DVT and GI prophylaxis. Further recommendations as per clinical course of the patient Prognosis is guarded Patient left AMA before we have a chance to talk to him Past Medical History Past Medical History: Hypertension Additional Past Medical History / Comment(s): depression, History of Any Multi-Drug Resistant Organisms: None Reported Past Surgical History: Orthopedic Surgery Additional Past Surgical History / Comment(s): hand, Past Anesthesia/Blood Transfusion Reactions: No Reported Reaction Past Psychological History: Anxiety, Depression Smoking Status: Current every day smoker Past Alcohol Use History: Rare Past Drug Use History: Marijuana Medications and Allergies Home Medications Medication Instructions Recorded Confirmed Type Ferrous Sulfate [Iron (65 MG 325 mg PO DAILY 05/16/21 05/16/21 History Elemental)] Multivitamins, Thera [Multivitamin 1 tab PO DAILY 05/16/21 05/16/21 History (formulary)] Omeprazole 40 mg PO DAILY 05/16/21 05/16/21 History Ondansetron Odt [Zofran ODT] 4 mg PO Q12HR PRN 05/16/21 05/16/21 History Ascorbic Acid [Vitamin C] 500 mg PO DAILY 30 Days #30 tab 05/17/21 Rx Aspirin 81 mg PO DAILY 30 Days #30 tab 05/17/21 Rx Cholecalciferol [Vitamin D3 (25 50 mcg PO DAILY #60 tablet 05/17/21 Rx Mcg = 1000 Iu)] Dexamethasone 6 mg PO DAILY 10 Days #10 tablet 05/17/21 Rx Zinc Sulfate [Orazinc] 220 mg PO DAILY 14 Days #14 cap 05/17/21 Rx Allergies Allergy/AdvReac Type Severity Reaction Status Date / Time No Known Allergies Allergy Verified 08/30/21 20:32 Physical Exam Vitals: Vital Signs Temp Pulse Pulse Resp BP BP BP 08/31/21 00:00 98.4 F 81 18 133/102 135/98 08/30/21 23:00 80 18 144/107 08/30/21 20:28 97.1 F L 101 H 18 138/95 BP Pulse Ox 08/31/21 00:00 133/101 98 08/30/21 23:00 100 08/30/21 20:28 99 Intake and Output 08/30/21 08/30/21 08/31/21 14:59 22:59 06:59 Other: Weight 81.647 kg Results CBC & Chem 7: 08/30/21 20:45 08/30/21 20:45 Labs: Abnormal Lab Results - Last 24 Hours (Table) 08/30/21 08/30/21 08/30/21 Range/Units 20:45 20:45 20:45 Hgb 10.4 L (13.0-17.5) gm/dL Hct 35.1 L (39.0-53.0) % MCV 70.4 L (80.0-100.0) fL MCH 20.9 L (25.0-35.0) pg MCHC 29.7 L (31.0-37.0) g/dL RDW 18.6 H (11.5-15.5) % Lymphocytes # 0.9 L (1.0-4.8) k/uL APTT 21.3 L (22.0-30.0) sec Chloride 109 H (98-107) mmol/L Glucose 108 H (74-99) mg/dL
[2021-08-31] MEDS ORDERED: ENOXAPARIN 40 MG/0.4 ML SYRINGE SQ SCH (09:00)
[2021-08-31] MEDS ORDERED: NICOTINE 21MG/24HR PATCH TRANSDERM SCH (09:00)
[2021-08-31] MEDS ORDERED: PANTOPRAZOLE 40 MG/10 ML VIAL IV SCH (09:00)
== END 2021-08-31 02:51 | disposition left against medical advice (07) ==
LOC: EC 20:21 → 6NMEDSUR 08-31 01:19
PROVIDERS: ADMIT Internal Medicine; ATTEND Internal Medicine
DX: R55 Syncope and collapse (principal); Z53.29 Procedure and treatment not carried out because of patient's decision for other reasons; R07.9 Chest pain, unspecified; M54.2 Cervicalgia; R68.84 Jaw pain; R42 Dizziness and giddiness; R51.9 Headache, unspecified; M25.512 Pain in left shoulder; F17.210 Nicotine dependence, cigarettes, uncomplicated; J44.9 Chronic obstructive pulmonary disease, unspecified; I10 Essential (primary) hypertension; F32.A Depression, unspecified; F41.9 Anxiety disorder, unspecified; S00.01XA Abrasion of scalp, initial encounter; W18.30XA Fall on same level, unspecified, initial encounter; D50.9 Iron deficiency anemia, unspecified; Z91.19 Patient's noncompliance with other medical treatment and regimen; Z79.899 Other long term (current) drug therapy; Z79.82 Long term (current) use of aspirin; Z71.9 Counseling, unspecified
CPT/HCPCS: 99285; 36415; 93005; 85379; 83880; 80053; 83735; 84484; 85025; 85610; 85730; 71046; 72125; 70450; G0378

== ENCOUNTER 2022-08-13 07:00 | Day surgery (SDC) | payer OTHER ==
[2022-08-09 15:31] VITALS: BMI 31.6
[~2022-08-13 07:00] MED LIST: ALPRAZolam 0.25 MG TAB PO PRN; ALPRAZolam 0.5 MG TAB PO PRN; ASPIRIN 325 MG TAB PO STA; ATORVASTATIN 80 MG TAB PO STA; HEPARIN SODIUM,PORCINE 10,000 UNIT in SODIUM CHLORIDE 0.9% 1,000 ML IRRIGATION PRN; HEPARIN SODIUM,PORCINE 2,500 UNIT in SODIUM CHLORIDE 0.9% 250 ML IRRIGATION PRN; NITROGLYCERIN SL TABS 0.4 MG TAB SUBLINGUAL PRN; SODIUM CHLORIDE 0.9% 1,000 ML in EMPTY BAG 1 BAG IV SCH
[2022-08-13] MEDS ORDERED: SODIUM CHLORIDE 0.9% 1,000 ML IV ONE (07:11)
[2022-08-13 07:19] VITALS: RESP 16; TEMP 98.8
[2022-08-13 07:28] LABS: Anisocytosis Slight; Basophils % (A) 1 %; Eosinophils # (A) 0.1 k/uL (0-0.7); Eosinophils % (A) 2 %; HCT 42.6 % (39.0-53.0); HGB 13.8 gm/dL (13.0-17.5); Lymphocytes # (A) 2.1 k/uL (1.0-4.8); Lymphocytes % (A) 33 %; MCH 23.7 pg (25.0-35.0); MCHC 32.3 g/dL (31.0-37.0); MCV 73.4 fL (80.0-100.0); Mean Platelet Volume 7.5; Microcytosis Moderate; Monocytes # (A) 0.5 k/uL (0-1.0); Monocytes % (A) 8 %; Neutrophils # (A) 3.6 k/uL (1.3-7.7); Neutrophils % (A) 56 %; Platelet Count 221 k/uL (150-450); RBC 5.81 m/uL (4.30-5.90); RDW 17.3 % (11.5-15.5); WBC 6.4 k/uL (3.8-10.6)
[2022-08-13] MEDS ORDERED: VERAPAMIL 2.5 MG/ML 2 ML AMP ONE ×2 (07:34→08:38)
[2022-08-13 07:41] LABS: African American GFR (CKD) >90 (>60 ml/min/1.73 sqM); Anion Gap 8 mmol/L; Blood Urea Nitrogen 14 mg/dL (9-20); Calcium 9.9 mg/dL (8.4-10.2); Carbon Dioxide 25 mmol/L (22-30); Chloride 104 mmol/L (98-107); Glucose 91 mg/dL (74-99); Non-African American GFR(CKD) >90 (>60 ml/min/1.73 sqM); Potassium 4.8 mmol/L (3.5-5.1); Sodium 137 mmol/L (137-145)
[2022-08-13] MEDS ORDERED: HEPARIN SODIUM 1,000 UN/ML (10ML VL) ONE (08:38)
[2022-08-13] MEDS ORDERED: fentaNYL (PF) 50 MCG/ML 2 ML AMP ONE (08:38)
[2022-08-13] MEDS: MIDAZOLAM 2 MG/2 ML VIAL IV ONE ×2 (08:57→09:10)
[2022-08-13] MEDS ORDERED: fentaNYL (PF) 50 MCG/1 ML VIAL IV ONE (08:58)
[2022-08-13] MEDS ORDERED: LIDOCAINE 1% INJ 10MG/ML (5 ML VIAL-PF) SQ ONE (09:00)
[2022-08-13] MEDS ORDERED: VERAPAMIL SYRINGE (5 MG/10 ML) INTRAARTER ONE (09:01)
[2022-08-13] MEDS ORDERED: HEPARIN SODIUM 1,000 UN/ML (10ML VL) IV ONE (09:05)
--- NOTE | 2022-08-13 09:20 | P.CARDCATH ---
Description of Procedure: PROCEDURES PERFORMED: Left heart catheterization, bilateral coronary angiography INDICATION: Chest pain concerning for unstable angina CONSENT:I have discussed the risks, benefits and alternative therapies for the above-mentioned procedure and for both sedation/analgesia as well as necessary blood product administration, if indicated, as they pertain to this patient. The patient has indicated understanding and acceptance of the risks and procedures discussed. PROCEDURE: After the risks, benefits and alternatives of the above mentioned procedure explained in detail with the patient, informed consent was obtained. Patient was taken to the catheterization lab and prepped and draped in usual fashion. 1% lidocaine was used to anesthetize the right radial artery. A 6- Guyanese sheath was placed in the right radial artery using modified Seldinger technique. Left coronary angiography was performed with a 5-Guyanese JL 3.5 cath eter and right coronary angiography was performed with a 6-Guyanese AR 2 catheter in various views. A 5-Guyanese FR5 catheter was inserted into the left ventricle and pressure measurements were obtained. The right radial sheath was removed and a TR band was placed with hemostasis achieved. The patient tolerated the procedure well. Patient was transported back to the post catheterization holding area in stable condition. Conscious Sedation: Patient was monitored under the direct supervision of myself for conscious sedation using Versed and fentanyl for a total duration of 19 minutes HEMODYNAMICS: Aorta: 125/82 LV: 118/1, LVEDP 7 SELECTIVE CORONARY ARTERIOGRAPHY: LEFT MAIN: The left main is a large caliber vessel which bifurcates into the LAD and circumflex. There is no significant stenosis. LEFT ANTERIOR DESCENDING CORONARY ARTERY: LAD is a large caliber vessel which wraps around to the apex. There is no significant stenosis. LEFT CIRCUMFLEX CORONARY ARTERY: Left circumflex is a moderate caliber vessel without significant stenosis. RIGHT CORONARY ARTERY: The right coronary artery is a large caliber vessel which gives off a PDA and PLV branch and is the dominant vessel. There is no significant stenosis. FINAL IMPRESSION: 1. Normal coronary arteries as described above. 2. Normal left sided filling pressures PLAN: 1. Aggressive risk factor modification per most recent ACC/AHA guidelines. 2. Follow-up in the office in 1-2 weeks.
[2022-08-13] MEDS ORDERED: IOPAMIDOL-370 125ML BTL INJ ONE (09:25)
[2022-08-13 13:43] VITALS: BP 125/88; PULSE 92
== END 2022-08-13 13:30 | disposition home or self-care (01) ==
LOC: CATHCVL 07:00
PROVIDERS: ATTEND Internal Medicine
DX: R07.9 Chest pain, unspecified (principal); K21.9 Gastro-esophageal reflux disease without esophagitis; G89.29 Other chronic pain; Z87.891 Personal history of nicotine dependence; Z86.16 Personal history of COVID-19; Z87.19 Personal history of other diseases of the digestive system; N52.9 Male erectile dysfunction, unspecified; Z79.82 Long term (current) use of aspirin; Z79.899 Other long term (current) drug therapy
CPT/HCPCS: 93458; 99152; 80048; 85025; C1769; C1894; J2250; J2001; J1644; Q9967; J3010

== ENCOUNTER 2022-12-16 23:39 | Emergency (ER) | payer OTHER ==
[2022-12-16 23:45] VITALS: RESP 18; TEMP 98.6
[2022-12-17] MEDS ORDERED: DIPH,PERTUS(ACELL)TETVAC-LF 0.5 ML VIAL IM ONE (00:03)
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
[2022-12-17 00:32] VITALS: BP 131/89; PULSE 81
== END 2022-12-17 00:32 | disposition home or self-care (01) ==
LOC: EC 23:39
DX: T22.211A Burn of second degree of right forearm, initial encounter (principal); I10 Essential (primary) hypertension; F17.200 Nicotine dependence, unspecified, uncomplicated; Z23 Encounter for immunization; Z79.82 Long term (current) use of aspirin; Z79.899 Other long term (current) drug therapy; Z86.16 Personal history of COVID-19; X15.0XXA Contact with hot stove (kitchen), initial encounter
CPT/HCPCS: 90471; 90715; 99283

== ENCOUNTER 2023-11-28 06:07 | Emergency (ER) | payer OTHER ==
[2023-11-28 06:13] VITALS: BP 124/81; RESP 18
--- NOTE | 2023-11-28 06:27 | ED ---
Eye Problem HPI - General Chief complaint: Eye Problems Stated complaint: Eye Issues Time Seen by Provider: 11/28/23 06:15 Source: patient, RN notes reviewed Mode of arrival: ambulatory Limitations: no limitations - History of Present Illness Initial comments: 57-year-old male presents emergency department chief complaint of eye irritation. Patient failure was seen here along with this patient for irritation of her eyes related to UV light exposure through her nostrils for ROM. Patient has sensitivity, burning and redness to his eye. Denies any vi sual disturbances he has photosensitivity. - Related Data Home Medications Medication Instructions Recorded Confirmed Ferrous Sulfate [Iron (65 MG 325 mg PO DAILY 05/16/21 08/09/22 Elemental)] Multivitamins, Thera [Multivitamin 1 tab PO DAILY 05/16/21 08/09/22 (formulary)] Omeprazole 40 mg PO DAILY 05/16/21 08/09/22 Ondansetron Odt [Zofran ODT] 4 mg PO Q12HR PRN 05/16/21 08/13/22 Aspirin 81 mg PO DAILY PRN 08/09/22 08/13/22 Previous Rx's Medication Instructions Recorded Ascorbic Acid [Vitamin C] 500 mg PO DAILY 30 Days #30 tab 05/17/21 Cholecalciferol [Vitamin D3 (25 50 mcg PO DAILY #60 tablet 05/17/21 Mcg = 1000 Iu)] dexAMETHasone [Dexamethasone] 6 mg PO DAILY 10 Days #10 tablet 05/17/21 Allergies Allergy/AdvReac Type Severity Reaction Status Date / Time No Known Allergies Allergy Verified 11/28/23 06:13 Review of Systems ROS Statement: Those systems with pertinent positive or pertinent negative responses have been documented in the HPI. ROS Other: All systems not noted in ROS Statement are negative. Past Medical History Past Medical History: Chest Pain / Angina, Hypertension Additional Past Medical History / Comment(s): SOB, hx covid infection May 2021 History of Any Multi-Drug Resistant Organisms: None Reported Past Surgical History: Orthopedic Surgery Additional Past Surgical History / Comment(s): hand Past Anesthesia/Blood Transfusion Reactions: No Reported Reaction Past Psychological History: Anxiety, Depression Smoking Status: Current every day smoker Past Alcohol Use History: Occasional Past Drug Use History: Marijuana - Past Family History Mother Family Medical History: No Reported History General Exam Limitations: no limitations General appearance: alert, in no apparent distress Head exam: Present: atraumatic, normocephalic, normal inspection Eye exam: Present: PERRL, EOMI, conjunctival injection, other (Normal pressures, no cloudy no abrasions or ulcerations noted). Absent: scleral icterus, periorbital swelling ENT exam: Present: normal exam, normal oropharynx, mucous membranes moist Neck exam: Present: normal inspection. Absent: tenderness, meningismus, lymphadenopathy Respiratory exam: Present: normal lung sounds bilaterally. Absent: respiratory distress, wheezes, rales, rhonchi, stridor Cardiovascular Exam: Present: regular rate, normal rhythm, normal heart sounds. Absent: systolic murmur, diastolic murmur, rubs, gallop, clicks Course Vital Signs 11/28/23 06:11 Temperature 98.2 F Pulse Rate 97 Respiratory 18 Rate Blood Pressure 124/81 O2 Sat by Pulse 98 Oximetry Medical Decision Making - Medical Decision Making Was pt. sent in by a medical professional or institution (, PA, WHOLESALE PARTS SALESPERSON, urgent care, hospital, or fci...) When possible be specific @ -No Did you speak to anyone other than the patient for history (EMS, parent, family, police, friend...)? What history was obtained from this source @ -No Did you review nursing and triage notes (agree or disagree)? Why? @ -I reviewed and agree with nursing and triage notes Were old charts reviewed (outside hosp., previous admission, EMS record, old EKG, old radiological studies, urgent care reports/EKG's, fci records)? Report findings @ -No old charts were reviewed Differential Diagnosis (chest pain, altered mental status, abdominal pain women, abdominal pain men, vaginal bleeding, weakness, fever, dyspnea, syncope, headache, dizziness, GI bleed, back pain, seizure, CVA, palpatations, mental health, musculoskeletal)? @ -Photokeratitis, conjunctivitis, corneal abrasion, Carazo EKG interpreted by me (3pts min.). @ -None X-rays interpreted by me (1pt min.). @ -None done CT interpreted by me (1pt min.). @ -None done U/S interpreted by me (1pt. min.). @ -None done What testing was considered but not performed or refused? (CT, X-rays, U/S, labs)? Why? @ -None What meds were considered but not given or refused? Why? @ -None Did you discuss the management of the patient with other professionals (homa avila i.e. , PA, WHOLESALE PARTS SALESPERSON, lab, RT, psych nurse, social media director, book jacket cover machine operator, teacher, [place] police officer, case aide)? Give summary @ -No Was smoking cessation discussed for >3mins.? @ -No Was critical care preformed (if so, how long)? @ -No Were there social determinants of health that impacted care today? How? (Homelessness, low income, unemployed, alcoholism, drug addiction, transportation, low edu. Level, literacy, decrease access to med. care, fci, rehab)? @ -No Was there de-escalation of care discussed even if they declined (Discuss DNR or withdrawal of care, Hospice)? DNR status @ -No What co-morbidities impacted this encounter? (DM, HTN, Smoking, COPD, CAD, Cancer, CVA, ARF, Chemo, Hep., AIDS, mental health diagnosis, sleep apnea, morbid obesity)? @ -None Was patient admitted / discharged? Hospital course, mention meds given and route, prescriptions, significant lab abnormalities, going to OR and other pertinent info. @ -discharge patient feels productive proparacaine drops patient has photokeratitis. There was concerns for possible infectious reasons patient was placed on Tobrex eyedrops Undiagnosed new problem with uncertain prognosis? @ -No Drug Therapy requiring intensive monitoring for toxicity (Heparin, Nitro, Insulin, Cardizem)? @ -No Were any procedures done? @ -No Diagnosis/symptom? @ -Photokeratitis Acute, or Chronic, or Acute on Chronic? @ -Acute Uncomplicated (without systemic symptoms) or Complicated (systemic symptoms)? @ -Uncomplicated Side effects of treatment? @ -No Exacerbation, Progression, or Severe Exacerbation? @ -No Poses a threat to life or bodily function? How? (Chest pain, [place], [place], pneumonia, PE, COPD, DKA, ARF, appy, cholecystitis, CVA, Diverticulitis, Homicidal, Suicidal, threat to staff... and all critical care pts) @ -No Disposition Clinical Impression: Photokeratitis of right eye Disposition: HOME SELF-CARE Condition: Stable Instructions (If sedation given, give patient instructions): Corneal Flash Chau (ED) Additional Instructions: Please return to the Emergency Department if symptoms worsen or any other concerns. Is patient prescribed a controlled substance at d/c from ED?: No Referrals: El Crawford MD [Primary Care Provider] - 1-2 days Time of Disposition: 06:26
[2023-11-28] MEDS: PROPARACAINE 0.5% OPHTH DROPS 15 ML BTL LEFT EYE STA (06:36)
[2023-11-28] MEDS: IBUPROFEN 600 MG TAB PO STA (06:36)
[2023-11-28] MEDS: TOBRAMYCIN 0.3% OPHTH DROPS 5 ML BTL LEFT EYE STA (06:37)
[2023-11-28 07:17] VITALS: PULSE 88; TEMP 98.3
== END 2023-11-28 07:15 | disposition home or self-care (01) ==
LOC: EC 06:07
DX: H16.131 Photokeratitis, right eye (principal); F17.200 Nicotine dependence, unspecified, uncomplicated
CPT/HCPCS: 99283

== ENCOUNTER 2024-02-13 15:41 | Emergency (ER) | payer OTHER ==
[2024-02-13 15:48] VITALS: TEMP 97.9
--- NOTE | 2024-02-13 16:07 | ED ---
URI HPI - General Chief Complaint: Upper Respiratory Infection Stated Complaint: black mold exposure Time Seen by Provider: 02/13/24 15:55 Source: patient, RN notes reviewed, old records reviewed Mode of arrival: ambulatory Limitations: no limitations - History of Present Illness Initial Comments: This is a 58-year-old male to ER with back exposure coming in for cough today. Patient coming in for cough and congestion secondary to black mold which was found in ultrasound reviewed. Patient is here with his friend who also has similar symptoms. No fevers no other complaints MD Complaint: cough -: minutes(s) Severity: mild Severity scale (1-10): 3 Quality: burning Consistency: constant Improves With: nothing Worsens With: nothing Context: other (Possible black mold exposure) Associated Symptoms: cough Treatments Prior to Arrival: none - Related Data Home Medications Medication Instructions Recorded Confirmed Ferrous Sulfate [Iron (65 MG 325 mg PO DAILY 05/16/21 08/09/22 Elemental)] Multivitamins, Thera [Multivitamin 1 tab PO DAILY 05/16/21 08/09/22 (formulary)] Omeprazole 40 mg PO DAILY 05/16/21 08/09/22 Ondansetron Odt [Zofran ODT] 4 mg PO Q12HR PRN 05/16/21 08/13/22 Aspirin 81 mg PO DAILY PRN 08/09/22 08/13/22 Previous Rx's Medication Instructions Recorded Ascorbic Acid [Vitamin C] 500 mg PO DAILY 30 Days #30 tab 05/17/21 Cholecalciferol [Vitamin D3 (25 50 mcg PO DAILY #60 tablet 05/17/21 Mcg = 1000 Iu)] dexAMETHasone [Dexamethasone] 6 mg PO DAILY 10 Days #10 tablet 05/17/21 Allergies Allergy/AdvReac Type Severity Reaction Status Date / Time No Known Allergies Allergy Verified 02/13/24 15:48 Review of Systems ROS Statement: Those systems with pertinent positive or pertinent negative responses have been documented in the HPI. ROS Other: All systems not noted in ROS Statement are negative. Past Medical History Past Medical History: Chest Pain / Angina, Hypertension Additional Past Medical History / Comment(s): SOB, hx covid infection May 2021 History of Any Multi-Drug Resistant Organisms: None Reported Past Surgical History: Orthopedic Surgery Additional Past Surgical History / Comment(s): hand Past Anesthesia/Blood Transfusion Reactions: No Reported Reaction Past Psychological History: Anxiety, Depression Smoking Status: Current every day smoker Past Alcohol Use History: Occasional Past Drug Use History: Marijuana - Past Family History Mother Family Medical History: No Reported History General Exam Limitations: no limitations General appearance: alert, in no apparent distress Head exam: Present: atraumatic, normocephalic, normal inspection Eye exam: Present: normal appearance, PERRL, EOMI. Absent: scleral icterus, conjunctival injection, periorbital swelling ENT exam: Present: normal exam, mucous membranes moist Neck exam: Present: normal inspection. Absent: tenderness, meningismus, lymphadenopathy Respiratory exam: Present: normal lung sounds bilaterally. Absent: respiratory distress, wheezes, rales, rhonchi, stridor Cardiovascular Exam: Present: regular rate, normal rhythm, normal heart sounds. Absent: systolic murmur, diastolic murmur, rubs, gallop, clicks GI/Abdominal exam: Present: soft, normal bowel sounds. Absent: distended, tenderness, guarding, rebound, rigid Extremities exam: Present: normal inspection, full ROM, normal capillary refill. Absent: tenderness, pedal edema, joint swelling, calf tenderness Back exam: Present: normal inspection Neurological exam: Present: alert, oriented X3, CN II-XII intact Psychiatric exam: Present: normal affect, normal mood Skin exam: Present: warm, dry, intact, normal color. Absent: rash Course Vital Signs 02/13/24 02/13/24 02/13/24 15:46 16:16 16:23 Temperature 97.9 F Pulse Rate 96 90 90 Respiratory 20 Rate Blood Pressure 127/80 O2 Sat by Pulse 98 Oximetry 02/13/24 17:04 Temperature Pulse Rate 98 Respiratory 18 Rate Blood Pressure 131/89 O2 Sat by Pulse Oximetry - Reevaluation(s) Reevaluation #1: 02/13/24 16:46 Medical records reviewed Reevaluation #2: 02/13/24 16:46 Patient symptoms improved Reevaluation #3: 02/13/24 16:46 Patient informed of results questions answered Reevaluation #4: Was pt. sent in by a medical professional or institution (, PA, WELDING MACHINE FEEDER, urgent care, hospital, or intermediate...) When possible be specific @ -no Did you speak to anyone other than the patient for history (EMS, parent, family, police, friend...)? What history was obtained from this source @ -no Did you review nursing and triage notes (agree or disagree)? Why? @ -agree Are old charts reviewed (outside hosp., previous admission, EMS record, old EKG, old radiological studies, urgent care reports/EKG's, intermediate records)? Report findings @ -yes Differential Diagnosis (chest pain, altered mental status, abdominal pain women, abdominal pain men, vaginal bleeding, weakness, fever, dyspnea, syncope, headache, dizziness, GI bleed, back pain, seizure, CVA, palpatations, mental health, musculoskeletal)? @ -prior EKG interpreted by me (3pts min.). @ -yes X-rays interpreted by me (1pt min.). @ -yes negative for acute disease CT interpreted by me (1pt min.). @ -no U/S interpreted by me (1pt. min.). @ -no What testing was considered but not performed or refused? (CT, X-rays, U/S, labs)? Why? @ -none What meds were considered but not given or refused? Why? @ -none Did you discuss the management of the patient with other professionals (professionals i.e. , PA, WELDING MACHINE FEEDER, lab, RT, psych nurse, social media director, histology tech, teacher, marketing and communications officer, case manager specialist)? Give summary @ -no Was smoking cessation discussed for >3mins.? @ -no Was critical care preformed (if so, how long)? @ -no Were there social determinants of health that impacted care today? How? (Homelessness, low income, unemployed, alcoholism, drug addiction, transportation, low edu. Level, literacy, decrease access to med. care, long-term, rehab)? @ -none Was there de-escalation of care discussed even if they declined (Discuss DNR or withdrawal of care, Hospice)? DNR status @ -no What co-morbidities impacted this encounter? (DM, HTN, Smoking, COPD, CAD, Cancer, CVA, ARF, Chemo, Hep., AIDS, mental health diagnosis, sleep apnea, morbid obesity)? @ -none Was patient admitted / discharged? Hospital course, mention meds given and route, prescriptions, significant lab abnormalities, going to OR and other pertinent info. @ - 58 male to ER for evaluation patient does have cough and congestion but normal x-ray feels well no distress can be discharged home Discharge Undiagnosed new problem with uncertain prognosis? @ -no Drug Therapy requiring intensive monitoring for toxicity (Heparin, Nitro, Insulin, Cardizem)? @ -no Were any procedures done? @ -no Diagnosis/symptom? @ -Upper respiratory infection Acute, or Chronic, or Acute on Chronic? @ -Acute Uncomplicated (without systemic symptoms) or Complicated (systemic symptoms)? @ -Complicated Side effects of treatment? @ -no Exacerbation, Progression, or Severe Exacerbation? @ -exacerbation Poses a threat to life or bodily function? How? (Chest pain, [place], [place], pneumonia, PE, COPD, DKA, ARF, appy, cholecystitis, CVA, Diverticulitis, Homicidal, Suicidal, threat to staff... and all critical care pts) @ -no Reevaluation #5: Differential Dyspnea: Coronary syndrome, arrhythmia, tamponade, asthma, COPD, pulmonary embolism, pneumonia, pneumothorax, pulmonary effusion, anaphylaxis, diabetic ketoacidosis, flailed chest, pulmonary contusion, diaphragmatic rupture, anemia, neuromuscular, this is not meant to be an all-inclusive list. Medical Decision Making - Medical Decision Making 58 male to ER for evaluation patient does have cough and congestion but normal x-ray feels well no distress can be discharged home - Radiology Data Radiology results: report reviewed (Chest x-ray is negative for acute disease), image reviewed Disposition Clinical Impression: Mold exposure, Acute upper respiratory infection Disposition: HOME SELF-CARE Condition: Good Instructions (If sedation given, give patient instructions): Acute Cough (ED), How Your Lungs Work (ED) Is patient prescribed a controlled substance at d/c from ED?: No Referrals: El Crawford MD [Primary Care Provider] - 1-2 days Time of Disposition: 16:45
[2024-02-13] MEDS: IPRATROPIUM-ALBUTEROL 3 ML NEB INHALATION STA (16:16)
[2024-02-13] MEDS: BENZONATATE 100 MG CAP PO STA (16:29)
[2024-02-13] MEDS: DEXAMETHASONE SOD PHOSPHATE 10 MG/ML 1 ML VIAL IM STA (16:29)
--- NOTE | 2024-02-13 16:48 | XR ---
EXAMINATION TYPE: XR chest 1V portable DATE OF EXAM: 02/13/2024 CLINICAL HISTORY: 08/30/2021 TECHNIQUE: Single frontal view of the chest is obtained. COMPARISON: None FINDINGS: There is no focal air space opacity, pleural effusion, or pneumothorax seen. The cardiac silhouette size is within normal limits. The osseous structures are intact. IMPRESSION: No acute process. [facility], , 02/13/2024 4:46 PM
[2024-02-13 17:05] VITALS: BP 131/89; PULSE 98; RESP 18
== END 2024-02-13 17:05 | disposition home or self-care (01) ==
LOC: EC 15:41
CPT/HCPCS: 71045; 94640; 96372; 99283

== ENCOUNTER 2024-02-27 15:54 | Emergency (ER) | payer OTHER ==
[2024-02-27 16:04] VITALS: RESP 18
--- NOTE | 2024-02-27 16:25 | ED ---
Chest Pain HPI - General Chief Complaint: Chest Pain Stated Complaint: Chest pain/tightness, dizziness Time Seen by Provider: 02/27/24 16:10 Source: patient, RN notes reviewed Mode of arrival: ambulatory Limitations: no limitations - History of Present Illness Initial Comments: 58-year-old male with history of hypertension presenting to the ER for cough x 3 days with associated sore throat. Patient states he feels as though he has a "virus". He states he was around his cousins with similar symptoms last weekend. He is complaining of multiple nonspecific symptoms such as acid reflux, intermittent chest pain with coughing, swollen lymph nodes in the neck, and dry mouth. He currently smokes approximately 6 cigarettes daily. Able to tolerate orals. Denies fever, chills, vomiting. He also states he sometimes becomes dizzy when he stands up from a sitting position. - Related Data Home Medications Medication Instructions Recorded Confirmed No Known Home Medications 02/27/24 02/27/24 Allergies Allergy/AdvReac Type Severity Reaction Status Date / Time cod Allergy Swelling Uncoded 02/27/24 17:34 Review of Systems ROS Statement: Those systems with pertinent positive or pertinent negative responses have been documented in the HPI. ROS Other: All systems not noted in ROS Statement are negative. EKG Findings - EKG Results: EKG: interpreted by ERMD (EKG reveals normal sinus rhythm with no ST changes. Ventricular rate 64 bpm, NE interval 134, QRS duration 89, QT/QTc 397/407) Past Medical History Past Medical History: Chest Pain / Angina, Hypertension Additional Past Medical History / Comment(s): SOB, hx covid infection May 2021 History of Any Multi-Drug Resistant Organisms: None Reported Past Surgical History: Orthopedic Surgery Additional Past Surgical History / Comment(s): hand Past Anesthesia/Blood Transfusion Reactions: No Reported Reaction Past Psychological History: Anxiety, Depression Smoking Status: Current every day smoker Past Alcohol Use History: Occasional Past Drug Use History: Marijuana - Past Family History Mother Family Medical History: No Reported History General Exam Limitations: no limitations General appearance: alert, in no apparent distress Head exam: Present: atraumatic, normocephalic, normal inspection Eye exam: Present: normal appearance, PERRL, EOMI. Absent: scleral icterus, conjunctival injection, periorbital swelling ENT exam: Present: normal exam, mucous membranes moist Neck exam: Present: normal inspection. Absent: tenderness, meningismus, lymphadenopathy Respiratory exam: Present: normal lung sounds bilaterally. Absent: respiratory distress, wheezes, rales, rhonchi, stridor Cardiovascular Exam: Present: regular rate, normal rhythm, normal heart sounds. Absent: systolic murmur, diastolic murmur, rubs, gallop, clicks GI/Abdominal exam: Present: soft, normal bowel sounds. Absent: distended, tenderness, guarding, rebound, rigid Neurological exam: Present: alert, oriented X3 Psychiatric exam: Present: normal affect, normal mood Skin exam: Present: warm, dry, intact, normal color. Absent: rash Course Vital Signs 02/27/24 02/27/24 16:00 18:56 Temperature 98.4 F 98.5 F Pulse Rate 71 70 Respiratory 18 18 Rate Blood Pressure 142/89 150/93 O2 Sat by Pulse 99 98 Oximetry Chest Pain MDM - MDM Was pt. sent in by a medical professional or institution (, PA, PHOTONICS ENGINEERING TECHNICIAN, urgent care, hospital, or residential...) When possible be specific @ -No Did you speak to anyone other than the patient for history (EMS, parent, family, police, friend...)? What history was obtained from this source @ -No Did you review nursing and triage notes (agree or disagree)? Why? @ -I reviewed and agree with nursing and triage notes Were old charts reviewed (outside hosp., previous admission, EMS record, old EKG, old radiological studies, urgent care reports/EKG's, residential records)? Report findings @ -No old charts were reviewed Differential Diagnosis (chest pain, altered mental status, abdominal pain women, abdominal pain men, vaginal bleeding, weakness, fever, dyspnea, syncope, headache, dizziness, GI bleed, back pain, seizure, CVA, palpatations, mental health, musculoskeletal)? @ -Differential Chest Pain: Stable Angina, Unstable Angina, STEMI, NSTEMI Aortic Dissection, Pneumothorax, Musculoskeletal, viral URI, strep pharyngitis, esophageal Spasm GERD, Cholecystitis, Pancreatitis, Zoster, this is not meant to be an all-inclusive list. EKG interpreted by me (3pts min.). @ -As above X-rays interpreted by me (1pt min.). @ -Chest x-ray reveals no acute process CT interpreted by me (1pt min.). @ -None done U/S interpreted by me (1pt. min.). @ -None done What testing was considered but not performed or refused? (CT, X-rays, U/S, labs)? Why? @ -None What meds were considered but not given or refused? Why? @ -None Did you discuss the management of the patient with other professionals (professionals i.e. Dr., PA, PHOTONICS ENGINEERING TECHNICIAN, lab, RT, psych nurse, social scientist, bobbin cleaner, teacher, president and chief operating officer, case technician)? Give summary @ -No Was smoking cessation discussed for >3mins.? @ -No Was critical care preformed (if so, how long)? @ -No Were there social determinants of health that impacted care today? How? (Homelessness, low income, unemployed, alcoholism, drug addiction, transportation, low edu. Level, literacy, decrease access to med. care, shelter, rehab)? @ -No Was there de-escalation of care discussed even if they declined (Discuss DNR or withdrawal of care, Hospice)? DNR status @ -No What co-morbidities impacted this encounter? (DM, HTN, Smoking, COPD, CAD, Cancer, CVA, ARF, Chemo, Hep., AIDS, mental health diagnosis, sleep apnea, morbid obesity)? @ -None Was patient admitted / discharged? Hospital course, mention meds given and route, prescriptions, significant lab abnormalities, going to OR and other pe rtinent info. @ -Discharged. This is a 58-year-old female presenting for cough x 3 days with associated sore throat. Vital signs are within acceptable limits. No acute distress. Physical examination is unremarkable. EKG reveals normal sinus rhythm with no ST changes. Chest x-ray reveals no acute process. Lab work including CBC, CMP, coags, troponin remarkable for hemoglobin 8.9, slightly de creased from previous, otherwise lab work unremarkable. Cepheid negative, strep negative. Patient updated on findings. Discussed likely diagnosis of viral upper respiratory infection. There are no signs of emergent etiology causing symptoms today. Advised patient to follow-up with PCP in 2 to 3 days for reevaluation. Return precautions discussed in detail and patient is agreeable to plan. Case was discussed with my ED attending Dr. Archibald. Patient discharged in stable condition. Undiagnosed new problem with uncertain prognosis? @ -No Drug Therapy requiring intensive monitoring for toxicity (Heparin, Nitro, Insulin, Cardizem)? @ -No Were any procedures done? @ -No Diagnosis/symptom? @ -Viral upper respiratory infection Acute, or Chronic, or Acute on Chronic? @ -Acute Uncomplicated (without systemic symptoms) or Complicated (systemic symptoms)? @ -Uncomplicated Side effects of treatment? @ -No Exacerbation, Progression, or Severe Exacerbation? @ -No Poses a threat to life or bodily function? How? (Chest pain, [place], [place], pneumonia, PE, COPD, DKA, ARF, appy, cholecystitis, CVA, Diverticulitis, Homicidal, Suicidal, threat to staff... and all critical care pts) @ -Not at this time Disposition Clinical Impression: Viral upper respiratory infection Disposition: HOME SELF-CARE Condition: Stable Instructions (If sedation given, give patient instructions): Upper Respiratory Infection (ED) Additional Instructions: Follow-up with PCP in 2 to 3 days for reevaluation. Take ibuprofen or Tylenol as needed for pain. Please return to the Emergency Department if symptoms worsen or any other concerns. Is patient prescribed a controlled substance at d/c from ED?: No Referrals: El Crawford MD [Primary Care Provider] - 1-2 days Time of Disposition: 18:23
--- NOTE | 2024-02-27 17:17 | XR ---
EXAMINATION TYPE: XR chest 2V DATE OF EXAM: 02/27/2024 COMPARISON: 02/13/2024 INDICATION: Cough and chest pain TECHNIQUE: Frontal and lateral views of the chest are obtained. FINDINGS: The heart size is normal. The pulmonary vasculature is normal. The lungs are clear. IMPRESSION: 1. No acute pulmonary process. [facility], Workstation: [facility], 02/27/2024 5:15 PM
[2024-02-27 17:20] LABS: Anisocytosis Slight; Basophils % (A) 1 %; Eosinophils # (A) 0.1 k/uL (0-0.7); Eosinophils % (A) 2 %; HCT 29.6 % (39.0-53.0); HGB 8.9 gm/dL (13.0-17.5); Hypochromasia Marked; Lymphocytes # (A) 1.1 k/uL (1.0-4.8); Lymphocytes % (A) 31 %; MCH 21.3 pg (25.0-35.0); MCHC 30.1 g/dL (31.0-37.0); MCV 70.7 fL (80.0-100.0); Mean Platelet Volume 7.2; Microcytosis Marked; Monocytes # (A) 0.2 k/uL (0-1.0); Monocytes % (A) 6 %; Neutrophils % (A) 56 %; Platelet Count 272 k/uL (150-450); RBC 4.19 m/uL (4.30-5.90); RDW 19.4 % (11.5-15.5); WBC 3.5 k/uL (3.8-10.6)
[2024-02-27 17:33] LABS: ALT 12 U/L (4-49); AST 42 U/L (17-59); African American GFR (CKD) >90 (>60 ml/min/1.73 sqM); Albumin 3.6 g/dL (3.5-5.0); Alkaline Phosphatase 60 U/L (38-126); Anion Gap 2 mmol/L; Blood Urea Nitrogen 11 mg/dL (9-20); Calcium 8.9 mg/dL (8.4-10.2); Carbon Dioxide 24 mmol/L (22-30); Chloride 110 mmol/L (98-107); Glucose 74 mg/dL (74-99); Non-African American GFR(CKD) >90 (>60 ml/min/1.73 sqM); Potassium 4.2 mmol/L (3.5-5.1); Sodium 136 mmol/L (137-145); Total Bilirubin 0.8 mg/dL (0.2-1.3); Total Protein 6.1 g/dL (6.3-8.2)
[2024-02-27 17:39] LABS: INR 0.9 (<1.2); Prothrombin Time 10.4 sec (10.0-12.5)
[2024-02-27 19:36] VITALS: BP 150/93; PULSE 70; TEMP 98.5
== END 2024-02-27 18:56 | disposition home or self-care (01) ==
LOC: EC 15:54
CPT/HCPCS: 36415; 71046; 80053; 84484; 85025; 85610; 85730; 87636; 87651; 93005; 99285

== ENCOUNTER 2024-08-19 10:08 | Emergency (ER) | payer OTHER ==
[2024-08-19 10:20] VITALS: BP 146/87; PULSE 91; TEMP 98.8
--- NOTE | 2024-08-19 10:55 | ED ---
ENT HPI - General Chief complaint: ENT Stated complaint: Swollen right ear, loss of balance Time Seen by Provider: 08/19/24 10:47 Source: patient, RN notes reviewed Mode of arrival: ambulatory Limitations: no limitations - History of Present Illness Initial comments: 58-year-old male presenting for multiple complaints. 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 Reports pain in his right ear and in the right jaw and believes reports intermittent episodes of dizziness. Reports symptoms have been ongoing for about a year. He also reports he has been experiencing sinus congestion and cough over the past few days. Denies chest pain, shortness of breath, or abdominal pain. - Related Data Home Medications Medication Instructions Recorded Confirmed No Known Home Medications 02/27/24 02/27/24 Allergies Allergy/AdvReac Type Severity Reaction Status Date / Time cod Allergy Swelling Uncoded 08/19/24 10:20 Review of Systems ROS Statement: Those systems with pertinent positive or pertinent negative responses have been documented in the HPI. ROS Other: All systems not noted in ROS Statement are negative. Past Medical History Past Medical History: Chest Pain / Angina, Hypertension Additional Past Medical History / Comment(s): SOB, hx covid infection May 2021 History of Any Multi-Drug Resistant Organisms: None Reported Past Surgical History: Orthopedic Surgery Additional Past Surgical History / Comment(s): hand Past Anesthesia/Blood Transfusion Reactions: No Reported Reaction Past Psychological History: Anxiety, Depression Smoking Status: Current every day smoker Past Alcohol Use History: Occasional Past Drug Use History: Marijuana - Past Family History Mother Family Medical History: No Reported History General Exam Limitations: no limitations General appearance: alert, in no apparent distress Head exam: Present: atraumatic, normocephalic, normal inspection Eye exam: Present: normal appearance, PERRL, EOMI. Absent: scleral icterus, conjunctival injection, periorbital swelling ENT exam: Present: normal exam, mucous membranes moist, TM's normal bilaterally, other (Diffuse dental caries throughout, no palpable abscesses or drainage) Neck exam: Present: normal inspection. Absent: tenderness, meningismus, lymphadenopathy Respiratory exam: Present: normal lung sounds bilaterally. Absent: respiratory distress, wheezes, rales, rhonchi, stridor Cardiovascular Exam: Present: regular rate, normal rhythm, normal heart sounds. Absent: systolic murmur, diastolic murmur, rubs, gallop, clicks GI/Abdominal exam: Present: soft, normal bowel sounds. Absent: distended, tenderness, guarding, rebound, rigid Neurological exam: Present: alert, oriented X3 Psychiatric exam: Present: normal affect, normal mood Skin exam: Present: warm, dry, intact, normal color. Absent: rash Course Vital Signs 08/19/24 08/19/24 10:15 11:44 Temperature 98.8 F Pulse Rate 91 Respiratory 19 16 Rate Blood Pressure 146/87 O2 Sat by Pulse 100 Oximetry Medical Decision Making - Medical Decision Making Was pt. sent in by a medical professional or institution (CARINA Claros, LAMP REPLACER, urgent care, hospital, or skilled nursing...) When possible be specific @ -No Did you speak to anyone other than the patient for history (EMS, parent, family, police, friend...)? What history was obtained from this source @ -No Did you review nursing and triage notes (agree or disagree)? Why? @ -I reviewed and agree with nursing and triage notes Were old charts reviewed (outside hosp., previous admission, EMS record, old EKG, old radiological studies, urgent care reports/EKG's, skilled nursing records)? Report findings @ -No old charts were reviewed Differential Diagnosis (chest pain, altered mental status, abdominal pain women, abdominal pain men, vaginal bleeding, weakness, fever, dyspnea, syncope, headache, dizziness, GI bleed, back pain, seizure, CVA, palpatations, mental health, musculoskeletal)? @ -Otitis media, dental infection, dental abscess, viral URI, COVID-19, influenza, RSV EKG interpreted by me (3pts min.). @ -None X-rays interpreted by me (1pt min.). @ -Chest x-ray reveals no acute process CT interpreted by me (1pt min.). @ -None done U/S interpreted by me (1pt. min.). @ -None done What testing was considered but not performed or refused? (CT, X-rays, U/S, labs)? Why? @ -None What meds were considered but not given or refused? Why? @ -None Did you discuss the management of the patient with other professionals (professionals i.e. CARINA Claros, LAMP REPLACER, lab, RT, psych nurse, social media marketing analyst, speech therapist early intervention, teacher, staff mine warfare officer, leather case finisher)? Give summary @ -No Was smoking cessation discussed for >3mins.? @ -No Was critical care preformed (if so, how long)? @ -No Were there social determinants of health that impacted care today? How? (Homelessness, low income, unemployed, alcoholism, drug addiction, transportation, low edu. Level, literacy, decrease access to med. care, [facility], rehab)? @ -No Was there de-escalation of care discussed even if they declined (Discuss DNR or withdrawal of care, Hospice)? DNR status @ -No What co-morbidities impacted this encounter? (DM, HTN, Smoking, COPD, CAD, Cancer, CVA, ARF, Chemo, Hep., AIDS, mental health diagnosis, sleep apnea, morbid obesity)? @ -None Was patient admitted / discharged? Hospital course, mention meds given and route, prescriptions, significant lab abnormalities, going to OR and other pertinent info. @ -Left AGAINST MEDICAL ADVICE. 58-year-old male presenting for right ear/neck swelling. No red flag symptoms. Patient is able to breathe and swallow without difficulties. Patient is well appearing, in no acute distress. TMs normal bilaterally. There is dental caries present throughout oral cavity. Patient is negative for COVID-19, influenza, and RSV. Chest x-ray reveals no acute process. Patient left AGAINST MEDICAL ADVICE before lab work was performed or results were discussed. Case was discussed with my ED attending Dr. Francis. Undiagnosed new problem with uncertain prognosis? @ -No Drug Therapy requiring intensive monitoring for toxicity (Heparin, Nitro, Insulin, Cardizem)? @ -No Were any procedures done? @ -No Diagnosis/symptom? @ -Right otalgia Acute, or Chronic, or Acute on Chronic? @ -Acute Uncomplicated (without systemic symptoms) or Complicated (systemic symptoms)? @ -Complicated Side effects of treatment? @ -No Exacerbation, Progression, or Severe Exacerbation? @ -No Poses a threat to life or bodily function? How? (Chest pain, [place], [place], pneumonia, PE, COPD, DKA, ARF, appy, cholecystitis, CVA, Diverticulitis, Homicidal, Suicidal, threat to staff... and all critical care pts) @ -Unlikely - Lab Data Lab Results 08/19/24 Range/Units 11:05 Influenza Type A (PCR) Not Detected (Not Detectd) Influenza Type B (PCR) Not Detected (Not Detectd) RSV (PCR) Not Detected (Not Detectd) SARS-CoV-2 (PCR) Not Detected (Not Detectd) Disposition Clinical Impression: Otalgia of right ear Disposition: LEFT AGAINST MEDICAL ADVICE Referrals: El Crawford MD [Primary Care Provider] - 1-2 days Time of Disposition: 13:13
--- NOTE | 2024-08-19 11:13 | XR ---
EXAMINATION TYPE: XR chest 2V DATE OF EXAM: 08/19/2024 10:58 AM COMPARISON: None. CLINICAL INDICATION: Male, 58 years old with history of cough, TECHNIQUE: XR chest 2V view(s) obtained. FINDINGS: The heart size is normal. The pulmonary vasculature is normal. The lungs are clear. IMPRESSION: 1. No acute pulmonary process. [facility], , 08/19/2024 11:10 AM
[2024-08-19 11:45] VITALS: RESP 16
[2024-08-19 11:54] LABS: Influenza A Not Detected (Not Detectd); Influenza B Not Detected (Not Detectd); RSV Not Detected (Not Detectd)
== END 2024-08-19 11:45 | disposition left against medical advice (07) ==
LOC: EC 10:08
DX: H92.01 Otalgia, right ear (principal); K02.9 Dental caries, unspecified; F17.200 Nicotine dependence, unspecified, uncomplicated; Z53.29 Procedure and treatment not carried out because of patient's decision for other reasons; Z86.16 Personal history of COVID-19; Z91.09 Other allergy status, other than to drugs and biological substances
CPT/HCPCS: 71046; 87636; 99283